=== PATIENT | male | born 1955 | race Caucasian/White ===

== ENCOUNTER 2016-09-21 21:04 | Emergency (ER) | payer OTHER ==
[~2016-09-21] VITALS: Ht 182.9 cm; Wt 118.0 kg
[~2016-09-21 21:04] MED LIST: REVIEWED
[2016-09-21 21:29] VITALS: TEMP 36.8; Ht 182.9 cm; Wt 118.0 kg
[2016-09-21] MEDS ORDERED: ACET-1256 PO (22:23)
--- NOTE | 2016-09-21 22:54 | DIAGNOSTIC IMAGING REPORT ---
LEFT RIBS UNILATERAL WITH PA CHEST CLINICAL HISTORY: Left rib pain status post trauma COMPARISON STUDY: No previous studies for comparison. FINDINGS: The erect chest reveals no pneumothorax. There is no focal pulmonary consolidation. No left-sided rib fractures are visualized. IMPRESSION: No evidence of pneumothorax. No left-sided rib fractures are visualized. Electronically signed by: Mich Montiel M.D. 09/21/2016 10:52 PM Dictated Date/Time: 09/21/2016 10:51 PM
--- NOTE | 2016-09-21 23:07 | EMERGENCY ROOM VISIT NOTE ---
History First contact with patient: 21:52 Chief Complaint: RIB PAIN Stated Complaint: POSSIBLE BROKEN RIBS ON LEFT SIDE History of Present Illness The patient is a 60 year old male who presents to the Emergency Room via private vehicle with complaints of "possible broken ribs on left side". The patient states that during his occupation, earlier today around 6:30 PM he was attempting to unload a car, when he slipped and struck his left arm and left anterior rib cage off of the back of the truck. He states that when he coughs he experiences pain over the left anterior ribs. He states that at rest she experiences a 0/10 pain, and when he coughs the pain increases to a 2-3/10. He at this time denies any chest pain, or loss of consciousness. Review of Systems A complete 6-point Review of Systems was discussed with the patient, with pertinent positives and negatives listed in the History of Present Illness. All remaining Review of Systems questions can be considered negative unless otherwise specified. Past Medical/Surgical History No pertinent past medical history at this time. Family History No pertinent family history at this time. Social History Smoking Status: Never Smoker Alcohol Use: none Drug Use: none Marital Status: single Occupation Status: employed Current/Historical Medications Scheduled PRN Acetaminophen (Tylenol), 1,000 MG PO Q6 PRN for Pain Allergies Coded Allergies: No Known Allergies (Verified , 09/21/16) Physical Exam Vital Signs Date Time Temp Pulse Resp B/P Pulse Ox O2 Delivery O2 Flow Rate FiO2 09/21/16 23:14 97 16 161/102 99 09/21/16 21:29 36.8 118 18 186/115 95 Room Air Physical Exam VITAL SIGNS - Vital signs and nursing notes were reviewed. Patient is afebrile , he is hypertensive at 186/1:15, he is tachycardic at a rate of 118 bpm, he is saturating well on room air 95%. GENERAL -60-year-old male appearing his stated age who is in no acute distress. Communicates well with provider and answers questions appropriately. SKIN - Without rashes. No petechial rashes. The skin overlying the anterior chest is unremarkable. HEAD - NC/AT. LUNGS - Chest wall symmetric without accessory muscle use, intercostals retractions, or central cyanosis. Normal vesicular breath sounds CTA B/L. No wheezes, rales, or rhonchi appreciated. CARDIAC - RRR with S1/S2. No murmur, rubs, or gallops appreciated. MUSCULOSKELETAL: There is no tenderness to palpation overlying the anterior chest or ribs. EXTREMITIES - No clubbing or peripheral cyanosis. No tenderness to palpation overlying the left arm. +5/5 strength noted in UE/LE bilaterally. Medical Decision & Procedures ER Provider Diagnostic Interpretation: LEFT RIBS UNILATERAL WITH PA CHEST CLINICAL HISTORY: Left rib pain status post trauma COMPARISON STUDY: No previous studies for comparison. FINDINGS: The erect chest reveals no pneumothorax. There is no focal pulmonary consolidation. No left-sided rib fractures are visualized. IMPRESSION: No evidence of pneumothorax. No left-sided rib fractures are visualized. Electronically signed by: Mich Montiel M.D. 09/21/2016 10:52 PM Dictated Date/Time: 09/21/2016 10:51 PM Medical Decision Patient was seen and evaluated as above. After obtaining a thorough history and physical examination ED protocol had already ordered PA chest with unilateral ribs. This was read by myself and the radiologist and revealed no pneumothorax or acute fracture. The patient declined any pain medication. The patient declined any workup for his heart or blood work. I informed him that he was hypertensive, however he notes that he will follow-up. He presents with what appears to be a rib contusion, and does not have any signs suggestive of an MN however he was offered workup for this but declined. The rib pain was not reproducible, however it was worsening with a cough. The patient states that throughout his stay he began to feel better, and when his blood pressure was reevaluated and it was lower but still hypertensive. The patient states that he is only not this high, but he will follow-up. He notes that he is only concerned that he may have had a punctured lung or broken rib of which have been ruled out by x-ray. He does appear stable for discharge, and was instructed to follow-up. I informed him that persistent elevated blood pressure is a risk factor for heart attack and stroke of which she seemed already to be aware of. He was educated upon management today's findings, declined an incentive spirometer, was educated upon worrisome symptoms which to return, and was discharged home in good condition. In the evaluation and treatment of this patient following differential diagnoses were entertained: Rib fracture, rib contusion, pneumothorax, hemothorax, MN, PE, among others. Impression Primary Impression: Contusion of rib on left side Departure Information Dispostion Home / Self-Care Condition GOOD Referrals No Doctor, Assigned (PCP) Patient Instructions [facility] Additional Instructions You have been treated in the Emergency Department for Rib pain on the left side. For pain control, you can use the following [id number] medicines (if >12 yo): - Regular strength (325mg/tab) Tylenol (acetaminophen) 2 tabs every 4-6 hours as needed. Do not exceed 12 tablets in a 24 hour period. Avoid taking more than 4 grams (4000 mg) of Tylenol per day. This includes any other sources of acetaminophen you may take on a regular basis. - Regular strength (200 mg/tab) Advil (ibuprofen) 1-2 tabs every 4-6 hours as needed. Do not exceed a dose of 3200 mg per day. If this is an acute injury, ice can be applied to the area of pain for the first 3 days to help decrease pain and inflammation. After the first 3 days, a heating pad can be used over the area for continued soothing relief. To minimize your discomfort, you can hug a pillow while coughing or sneezing. Additionally, you should continue to force yourself to take nice, deep breaths. Full expansion of the lungs is necessary to prevent the accumulation of fluid in the lung tissue and development of pneumonia. You should schedule a follow-up appointment in 2-3 days with your Primary Care Provider for further evaluation and treatment of your rib pain. Your blood pressure was found to be elevated today. Please follow-up with your family doctor regarding this. Return to the Emergency Department if your current symptoms worsen despite treatment course outlined above, or if you develop any of the following symptoms : intractable pain despite aforementioned treatment course, development of a wet cough, bloody cough, fever, chills, or increased shortness of breath. Please return to the emergency department with any new/concerning symptoms.
[2016-09-21 23:14] VITALS: BP 161/102; PULSE 97; O2SAT 99
== END 2016-09-21 23:14 | disposition home or self-care (01) ==
LOC: C.EDB 21:05 → C.EDD 23:14
DX: S20.212A Contusion of left front wall of thorax, initial encounter (principal); W01.0XXA Fall on same level from slipping, tripping and stumbling without subsequent striking against object, initial encounter; Y99.0 Civilian activity done for income or pay

== ENCOUNTER 2021-02-24 11:29 | Inpatient (IN) ==
[2021-02-24] MEDS ORDERED: VANCOMYCIN HCL 2,250 MG in SODIUM CHLORIDE 0.9% 500 ML IV ONE (12:36)
[2021-02-24] MEDS ORDERED: VANCOMYCIN CONSULT ACTIVE PRN ×2 (12:36→17:14)
[2021-02-24] MEDS ORDERED: cefTRIAXone SODIUM 2,000 MG/70 ML BAG IV STA (12:36)
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
[2021-02-24] MEDS ORDERED: SODIUM CHLORIDE 0.9% 1000ML 1,000 ML IV SCH (12:45)
[2021-02-24 13:23] LABS: Basophils # (auto) 0.02 K/uL (0-0.2); Basophils % (auto) 0.2 %; Eosinophils # (auto) 0.16 K/uL (0-0.5); Eosinophils % (auto) 1.9 %; Hematocrit (blood only) 35.4 % (42-52); Hemoglobin 12.1 g/dL (14.0-18.0); Immature Granulocytes # (auto) 0.02 K/uL (0.00-0.02); Immature Granulocytes % (auto) 0.2 %; Lymphocytes # (auto) 0.67 K/uL (1.2-3.4); Mean Corpuscular Hgb Conc 34.2 g/dL (32-36); Mean Corpuscular Volume 87.6 fL (80-100); Mean Platelet Volume 11.2 fL (7.4-10.4); Monocytes # (auto) 0.54 K/uL (0.11-0.59); Monocytes % (auto) 6.5 %; Neutrophils # (auto) 6.96 K/uL (1.4-6.5); Neutrophils % (auto) 83.2 %; Platelet Count 201 K/uL (130-400); RDW Coefficient of Variation 14.7 % (11.5-14.5); RDW Standard Deviation 47.7 fL (36.4-46.3); Red Blood Count 4.04 M/uL (4.7-6.1); White Blood Count 8.37 K/uL (4.8-10.8)
[2021-02-24 13:34] LABS: Partial Thromboplastin Time 25.6 Seconds (21.0-31.0); Prothrombin Time 9.8 Seconds (9.0-12.0)
[2021-02-24 13:42] LABS: Alanine Aminotransferase 29 U/L (12-78); Albumin Level 2.8 gm/dl (3.4-5.0); Aspartate Aminotransferase 18 U/L (15-37); BUN Creatinine Ratio 18.1 (10-20); Blood Urea Nitrogen 13 mg/dl (7-18); Calcium 8.5 mg/dl (8.5-10.1); Carbon Dioxide 24 mmol/L (21-32); Chloride 105 mmol/L (98-107); Creatinine Clr Calc Pharmacy 112.3 ml/min; Est GFR (African American) 113.5 ml/min; Est GFR (Non-African American) 97.9 ml/min; Glucose 120 mg/dl (70-99); Magnesium 2.1 mg/dl (1.8-2.4); Sodium 138 mmol/L (136-145)
[2021-02-24 13:47] LABS: Albumin Globulin Ratio 0.7 (0.9-2); Alkaline Phosphatase 68 U/L (45-117); Bilirubin,Total 0.6 mg/dl (0.2-1); Globulin 3.8 gm/dl (2.5-4.0); Total Protein 6.6 gm/dl (6.4-8.2); Troponin I < 0.015 ng/ml (0-0.045)
--- NOTE | 2021-02-24 14:21 | Ultrasound Report ---
US soft tissue groin CLINICAL HISTORY: Left groin palpable abnormality. COMPARISON STUDY: None. FINDINGS: Real-time sonographic imaging of the left groin was performed with insurance sales representative images woods bmitted. There is a 12 x 6 x 3 cm complex subcutaneous fluid collection within the left groin demonst rating internal echoes and a few septations. There is mild edema within the surrounding subcutaneous fat. IMPRESSION: A 12 x 6 x 3 cm complex subcutaneous fluid collection within the left groin. This favors a subcutaneous hematoma. Of note, sterility cannot be assessed by imaging. Recommend follow-up to en sure resolution. ACT 112: Negative or not required by law. Electronically signed by: Maninder Gonzalez M.D. 02/24/2021 2:20 PM
[2021-02-24 14:59] LABS: Appearance Urine Clear (Clear); Bilirubin Urine Negative (Negative); Blood Urine Negative (Negative); Color Urine Yellow; Glucose Urine UA Negative (Negative); Ketones Urine Negative (Negative); Leukocyte Esterase Urine Negative (Negative); Nitrite Urine Negative (Negative); Protein Urine Negative (Negative); Specific Gravity Urine 1.005 (1.000-1.030); Urobilinogen Urine Negative (Negative)
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
[2021-02-24] MEDS ORDERED: POLYETHYLENE (MIRALAX) 17 GM PACK PO PRN (17:14)
[2021-02-24] MEDS ORDERED: CEFEPIME CONSULT ACTIVE ONE (17:14)
[2021-02-24] MEDS ORDERED: SODIUM CHLORIDE 0.9% 250 ML IV PRN (17:14)
[2021-02-24] MEDS ORDERED: MAGNESIUM HYDROXIDE SUSP 30 ML UDC PO PRN (17:14)
[2021-02-24] MEDS ORDERED: ALUMINUM/MAGNESIUM SUSP 30 ML UDC PO PRN (17:14)
[2021-02-24] MEDS ORDERED: ONDANSETRON INJ 2 MG/ML 2 ML VIAL IV PRN ×2 (17:14→17:52)
--- NOTE | 2021-02-24 17:36 | Anesthesiology Consultation ---
Date of Service February 24, 2021 Assessment & Plan (1) Encounter for pre-operative examination: Chart Review Chart Review: Acceptable Risk for Surgery History Surgery Operation Date: 02/24/21 18:00 Proposed Procedures p Incision and Drainage General(Left) - Radha Trevizo MD Height/Weight Height: 6 ft Weight: 86 kg Allergies Allergy/AdvReac Type Severity Reaction Status Date / Time pollen extracts Allergy Intermediate Sneezing Verified 02/24/21 13:22 tree and shrub pollen Allergy Intermediate Sneezing Verified 02/24/21 13:22 weed pollen Allergy Intermediate Sneezing Verified 02/24/21 13:22 Medications Home Medications Medication Instructions Recorded Confirmed Last Taken 20- Bamboo 1 packet PO QAM 02/24/21 02/24/21 02/24/21 ascorbic acid 125 mg-collagen, 1 cap PO QAM 02/24/21 02/24/21 02/24/21 hydrolyzed 740 mg capsule Powder in (Collagen Plus Vitamin C) packet ibuprofen 200 mg tablet 800 mg PO Q6H PRN 02/24/21 02/24/21 02/24/21 800 mg Past Medical History Medical History (Updated 02/24/21 @ 17:36 by Zack De Souza MD) Anemia Hx of appendicitis No pertinent past medical history Past Family History Family History Mother Sepsis Father Coronary heart disease Past Surgical History Surgical History History of appendectomy Social History Smoking Status: Never smoker Physical Exam Vital Signs Last Vital Signs Temp 36.7 C 02/24/21 11:35 Pulse 84 02/24/21 16:30 Resp 16 02/24/21 16:30 BP 131/75 02/24/21 16:30 Pulse Ox 99 02/24/21 16:30 Testing Laboratory Results 02/24/21 12:55 02/24/21 12:55 PT 9.8 Seconds (9.0-12.0) 02/24/21 12:55 INR 1.0 (0.9-1.1) 02/24/21 12:55 APTT 25.6 Seconds (21.0-31.0) 02/24/21 12:55 Urine Color Yellow 02/24/21 Unknown Urine Appearance Clear (Clear) 02/24/21 Unknown Urine pH 7.0 (4.5-7.5) 02/24/21 Unknown Ur Specific [place] 1.005 (1.000-1.030) 02/24/21 Unknown Urine Protein Negative (Negative) 02/24/21 Unknown Urine Glucose (UA) Negative (Negative) 02/24/21 Unknown Urine Ketones Negative (Negative) 02/24/21 Unknown Urine Nitrite Negative (Negative) 02/24/21 Unknown Ur Leukocyte Esterase Negative (Negative) 02/24/21 Unknown Electrocardiogram Date: 02/24/21 Findings: + NSR @ (29)
--- NOTE | 2021-02-24 17:38 | History & Physical Bridge Note ---
Date of Service February 24, 2021 History & Physical Bridge Note I have examined the patient, reviewed the History & Physical and in the interval since the performance of the History & Physical I have noted the following changes of clinical significance: no changes noted
[2021-02-24] MEDS ORDERED: MIDAZOLAM HCL 1 MG/ML 2ML VIAL ONE (17:46)
[2021-02-24] MEDS ORDERED: ONDANSETRON INJ 2 MG/ML 2 ML VIAL ONE (17:46)
[2021-02-24] MEDS ORDERED: PROPOFOL IV EMULSION 10 MG/ML 20 ML VIAL IV ONE (17:46)
[2021-02-24] MEDS ORDERED: LIDOCAINE 2% 2 ML VIAL/AMP(20MG/ML) INFIL ONE (17:46)
[2021-02-24] MEDS ORDERED: fentaNYL citrate 100 MCG/2 ML VIAL ONE ×2 (17:46)
[2021-02-24] MEDS ORDERED: ATROPINE SULFATE 0.1 MG/ML 10ML SYR IV PRN (17:52)
[2021-02-24] MEDS ORDERED: LABETALOL HCL IV 5 MG/ML 20ML IV PRN (17:52)
[2021-02-24] MEDS ORDERED: fentaNYL citrate 100 MCG/2 ML VIAL IV PRN (17:52)
[2021-02-24] MEDS ORDERED: KETOROLAC 30 MG/ML VIAL IV PRN (17:52)
[2021-02-24] MEDS ORDERED: LIDOCAINE 1% LOCAL 20 ML VIAL ONE (18:02)
[2021-02-24] MEDS ORDERED: BUPIVACAINE 0.5 % 5 MG/1 ML MPF 30ML VIAL ONE (18:02)
[2021-02-24] MEDS ORDERED: BACITRACIN OINT 15 GM TUBE ONE (18:02)
--- NOTE | 2021-02-24 18:35 | Post Operative Brief Note ---
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
--- NOTE | 2021-02-24 19:14 | Anesthesiology Progress Note ---
Date of Service February 24, 2021 Anesthesia Post Procedure Vital Signs Vital Signs: Temp Pulse Pulse Pulse Resp BP BP 02/24/21 19:10 65 13 126/64 02/24/21 19:00 70 17 124/73 02/24/21 18:50 79 23 142/87 H 02/24/21 18:41 36.7 C 77 13 136/78 02/24/21 17:38 37.2 C 87 18 152/110 H 02/24/21 17:36 36.5 C 69 16 137/72 02/24/21 17:10 36.5 C 69 16 137/72 02/24/21 16:30 84 16 131/75 02/24/21 16:00 89 21 146/80 H 02/24/21 15:32 82 23 147/74 H 02/24/21 15:00 95 H 17 185/105 H 02/24/21 14:30 81 17 134/76 02/24/21 11:35 36.7 C 85 18 112/66 Pulse Ox 02/24/21 19:10 100 02/24/21 19:00 100 02/24/21 18:50 99 02/24/21 18:41 100 02/24/21 17:38 97 02/24/21 17:36 95 02/24/21 17:10 95 02/24/21 16:30 99 02/24/21 16:00 98 02/24/21 15:32 99 02/24/21 15:00 100 02/24/21 14:30 99 02/24/21 11:35 98 Transfer of Care Handoff Completed per policy Notes Mental Status: alert / awake / arousable Patient Amnestic to Procedure: Yes Nausea / Vomiting: adequately controlled Pain: adequately controlled Airway Patency, RR, SpO2: stable & adequate BP & HR: stable & adequate Hydration State: stable & adequate Anesthetic Complications: no major complications apparent
[2021-02-24] MEDS ORDERED: HYDROmorphone INJ 1 MG/ML SYRINGE IV PRN (19:52)
[2021-02-24] MEDS ORDERED: oxyCODONE/ACETAMINOPHEN 5mg/325mg TAB PO PRN (19:52)
[2021-02-24] MEDS ORDERED: IBUPROFEN 800 MG TAB PO PRN (19:52)
[2021-02-24] MEDS: CEFEPIME 2,000 MG in SYRINGE 0 ML IV SCH (19:57)
[2021-02-24] MEDS: SODIUM CHLORIDE 0.9% 1000ML 1,000 ML IV SCH (19:57)
--- NOTE | 2021-02-24 20:02 | Pharmacy Report ---
Pharmacy Abx Initial Consult - Date of Service February 24, 2021 - Pharmacy Dosing Scope Date of Consult: 02/24/21 Consultation requested by: JULIOCESAR ROSENTHAL Pharmacy is consulted to initiate VANCOMYCIN/CEFEPIME IV dosing therapy, order appropriate labs and adjust drug dose/frequency. - Subjective The patient is a 65 year old M admitted on 02/24/21 14:59. - Objective Height: 6 ft Weight: 86 kg Vital Signs (Past 12hrs): Vital Signs Temp Pulse Pulse Pulse Resp BP BP 02/24/21 19:35 36.4 C L 78 16 133/68 02/24/21 19:30 79 20 136/74 02/24/21 19:20 37.1 C 73 12 122/68 02/24/21 19:10 65 13 126/64 02/24/21 19:00 70 17 124/73 02/24/21 18:50 79 23 142/87 H 02/24/21 18:41 36.7 C 77 13 136/78 02/24/21 17:38 37.2 C 87 18 152/110 H 02/24/21 17:36 36.5 C 69 16 137/72 02/24/21 17:10 36.5 C 69 16 137/72 02/24/21 16:30 84 16 131/75 02/24/21 16:00 89 21 146/80 H 02/24/21 15:32 82 23 147/74 H 02/24/21 15:00 95 H 17 185/105 H 02/24/21 14:30 81 17 134/76 02/24/21 11:35 36.7 C 85 18 112/66 Pulse Ox 02/24/21 19:35 97 02/24/21 19:30 97 02/24/21 19:20 95 02/24/21 19:10 100 02/24/21 19:00 100 02/24/21 18:50 99 02/24/21 18:41 100 02/24/21 17:38 97 02/24/21 17:36 95 02/24/21 17:10 95 02/24/21 16:30 99 02/24/21 16:00 98 02/24/21 15:32 99 02/24/21 15:00 100 02/24/21 14:30 99 02/24/21 11:35 98 Lab Results (24hrs): Laboratory Tests (24 Hours) 02/24/21 02/24/21 02/24/21 12:55 12:55 12:55 WBC 8.37 Neut # (Auto) 6.96 H Creatinine 0.72 Est Cr Clr Drug Dosing 112.3 Procalcitonin 0.07 Micro Results: 02/24/21 18:21 Gram Stain - Pending Abdomen, Left Lower Quadrant Aerobic and Anaerobic Culture - Pending 02/24/21 Unknown Gram Stain - Pending Leg,Left Wound Culture - Pending 02/24/21 13:00 Aerobic Blood Culture - Pending Blood Anaerobic Blood Culture - Pending 02/24/21 12:55 Aerobic Blood Culture - Pending Blood Anaerobic Blood Culture - Pending - Assessment & Plan Assessment 65 year old MALE, admitted following apparent infection in the groin associated with a traumatic hematoma Plan Cefepime/Vancomycin for treatment of groin infection of the skin and soft tissue Vancomycin IV * estimated per Vancomycin AUC Nomogram * Loading dose: 2250 mg (26 mg/kg) * Maintenance dose: 1000 mg IV (11.6 mg/kg) every 8 hours * Goal trough level for skin/soft tissue infection : 13 to 17 mcg/mL * Trough level ordered for Wednesday prior to the 8 AM IV Vancomycin dose Pharmacy will continue to follow and will adjust dose/frequency as necessary. Thank you.
[2021-02-24 20:36] LABS: Hematocrit (blood only) 34.3 % (42-52); Hemoglobin 11.7 g/dL (14.0-18.0)
[2021-02-24] MEDS: VANCOMYCIN HCL 1,000 MG in SODIUM CHLORIDE 0.9% 250 ML IV SCH (23:54)
[2021-02-25 00:34] LABS: Hematocrit (blood only) 32.1 % (42-52)
--- NOTE | 2021-02-25 03:20 | Operative Report (OR) ---
DATE OF PROCEDURE: 02/24/2021. PREOPERATIVE DIAGNOSIS: Left groin abscess. POSTOPERATIVE DIAGNOSIS: Left groin g abscess. OPERATION: Incision and drainage, left groin abscess. SURGEON: Radha Trevizo MD ANESTHESIA: General. ESTIMATED BLOOD LOSS: About 10 mL. FINDINGS: Left groin abscess with necrosis of soft tissue. Wound cultures sent and biopsies, necros is of soft tissue sent to pathology. COMPLICATIONS: None. INDICATIONS FOR THE PROCEDURE: This is a 65-year-old gentleman who was admitted to the hospital for left groin infection and diagnosis of left groin abscess. I recommended to do the incision and drain age, left groin abscess. I did talk to the patient about the benefit, risk, alternate procedure. I indicated the risks may include, but not limited to, such as bleeding, infection and healing the woun d scar, recurrence, abscess, sepsis. The patient understands. He signed informed consent and I answ ered all questions. DETAILS OF PROCEDURE: We brought the patient to the OR, put the patient in the supine position on th e OR table. The patient received SCD on bilateral legs to prevent DVT. Also, patient received IV va ncomycin and cefoxitin for prophylactic antibiotic. The patient received general anesthesia without difficulty. The left groin was prepped and draped in routine sterile fashion after timeout. Then I m meghan about a 3 cm incision on the left groin, immediately the pus came out. We suctioned all the pus and sent a wound culture also. Also, the patient had a chronic soft tissue. We removed some chronic soft tissue to send to pathology. Once we cleansed the wound and used the saline to flush the wound . Then, we packed with 1-inch Kerlix, packing the wound. Hemostasis obtained. Then, we put the renea ssing on and the patient tolerated the procedure well. All instrument, needle, sponge and account co rrect x2 at the end of the case. The patient was transferred to recovery room in stable condition. After the procedure, I did talk to the patient about the OR finding and the procedure we did, patient understands. Job ID: [id number]
[2021-02-25] MEDS: SODIUM CHLORIDE 0.9% 1000ML 1,000 ML IV SCH ×3 (03:36→21:20)
[2021-02-25 07:22] LABS: Basophils # (auto) 0.03 K/uL (0-0.2); Basophils % (auto) 0.5 %; Eosinophils # (auto) 0.24 K/uL (0-0.5); Eosinophils % (auto) 4.3 %; Hematocrit (blood only) 32.4 % (42-52); Immature Granulocytes # (auto) 0.01 K/uL (0.00-0.02); Immature Granulocytes % (auto) 0.2 %; Lymphocytes # (auto) 0.97 K/uL (1.2-3.4); Lymphocytes % (auto) 17.4 %; Mean Corpuscular Hemoglobin 29.7 pg (25-34); Mean Corpuscular Volume 87.6 fL (80-100); Mean Platelet Volume 10.3 fL (7.4-10.4); Monocytes # (auto) 0.46 K/uL (0.11-0.59); Monocytes % (auto) 8.3 %; Neutrophils # (auto) 3.85 K/uL (1.4-6.5); Neutrophils % (auto) 69.3 %; Platelet Count 168 K/uL (130-400); RDW Coefficient of Variation 14.8 % (11.5-14.5); RDW Standard Deviation 47.1 fL (36.4-46.3); White Blood Count 5.56 K/uL (4.8-10.8)
[2021-02-25] MEDS: CEFEPIME 2,000 MG in SYRINGE 0 ML IV SCH ×2 (07:32→19:40)
[2021-02-25 07:45] LABS: BUN Creatinine Ratio 14.5 (10-20); Calcium 8.2 mg/dl (8.5-10.1); Creatinine Clr Calc Pharmacy 141.8 ml/min; Est GFR (African American) 124.9 ml/min; Est GFR (Non-African American) 107.8 ml/min; Potassium 3.7 mmol/L (3.5-5.1)
[2021-02-25] MEDS: VANCOMYCIN HCL 1,000 MG in SODIUM CHLORIDE 0.9% 250 ML IV SCH ×2 (07:47→16:18)
[2021-02-25] MEDS ORDERED: [UNRECOGNIZED DRUG - OTHER] PO SCH (09:00)
[2021-02-25 09:05] LABS: Estimated Average Glucose 105 mg/dl; Hemoglobin A1C 5.3 % (4.5-5.6)
[2021-02-25] MEDS: ASCORBIC ACID 500 MG TAB PO SCH (09:55)
--- NOTE | 2021-02-25 10:38 | Surgery Progress Note ---
Date of Service February 25, 2021 Assessment & Plan (1) Traumatic hematoma of groin: Plan: POD # 1 s/p I&D of infected hematoms of left groin -avss - postop pain minimal - no leukocytosis - culture showing gram + cocci - blood cultures pending Plan: wound care nurse consult for possible wound vac given size of wound continue iv antibiotics for cellulitis continue pain management as needed heart healthy diet Admission and Anticipated Discharge Date Admission Date: February 24, 2021 Subjective feeling good no pain in left groin region tolerating diet Physical Exam Constitutional: WD/WN, vitals as above no acute distress and not ill appearing Skin: Left groin with large dressing present and serous drainage. Dressing removed. Large wound with packing present. There is erythema surrounding the left groin wound and some emaciated tissue but no necrosis. Induration still present. Markings of erythema of the left hip and extending to right groin have improved. Results & Data ([facility]) Vital Signs (Past 12 Hours) Vital Signs Temp Pulse Resp BP Pulse Ox 02/25/21 07:43 36.5 C 72 18 128/72 96 02/25/21 04:02 36.8 C 76 16 136/72 99 Laboratory Results 02/25/21 02/25/21 02/25/21 Range/Units 12:06 07:02 07:02 WBC (4.8-10.8) K/uL RBC (4.7-6.1) M/uL Hgb 11.2 L (14.0-18.0) g/dL Hct 33.3 L (42-52) % MCV (80-100) fL MCH (25-34) pg MCHC (32-36) g/dL RDW Std Deviation (36.4-46.3) fL RDW Coeff of Jaci (11.5-14.5) % Plt Count (130-400) K/uL MPV (7.4-10.4) fL Immature Gran % (Auto) % Neut % (Auto) % Lymph % (Auto) % Carroll % (Auto) % Eos % (Auto) % Baso % (Auto) % Neut # (Auto) (1.4-6.5) K/uL Lymph # (Auto) (1.2-3.4) K/uL Carroll # (Auto) (0.11-0.59) K/uL Eos # (Auto) (0-0.5) K/uL Baso # (Auto) (0-0.2) K/uL Immature Gran # (Auto) (0.00-0.02) K/uL Sodium 141 (136-145) mmol/L Potassium 3.7 (3.5-5.1) mmol/L Chloride 109 H (98-107) mmol/L Carbon Dioxide 24 (21-32) mmol/L Anion Gap 8.0 (3-11) BUN 8 D (7-18) mg/dl Creatinine 0.57 L (0.6-1.4) mg/dl Est Cr Clr Drug Dosing 141.8 ml/min Est GFR ( Amer) 124.9 ml/min Est GFR (Non-Af Amer) 107.8 ml/min BUN/Creatinine Ratio 14.5 (10-20) Glucose 79 (70-99) mg/dl Estimat Average Glucose 105 mg/dl Hemoglobin A1c 5.3 (4.5-5.6) % Calcium 8.2 L (8.5-10.1) mg/dl Blood Type Blood Type Recheck Antibody Screen Crossmatch 02/25/21 02/25/21 02/24/21 Range/Units 07:02 00:25 21:41 WBC 5.56 (4.8-10.8) K/uL RBC 3.70 L (4.7-6.1) M/uL Hgb 11.0 L 11.0 L (14.0-18.0) g/dL Hct 32.4 L 32.1 L (42-52) % MCV 87.6 (80-100) fL MCH 29.7 (25-34) pg MCHC 34.0 (32-36) g/dL RDW Std Deviation 47.1 H (36.4-46.3) fL RDW Coeff of Jaci 14.8 H (11.5-14.5) % Plt Count 168 (130-400) K/uL MPV 10.3 (7.4-10.4) fL Immature Gran % (Auto) 0.2 % Neut % (Auto) 69.3 % Lymph % (Auto) 17.4 % Carroll % (Auto) 8.3 % Eos % (Auto) 4.3 % Baso % (Auto) 0.5 % Neut # (Auto) 3.85 (1.4-6.5) K/uL Lymph # (Auto) 0.97 L (1.2-3.4) K/uL Carroll # (Auto) 0.46 (0.11-0.59) K/uL Eos # (Auto) 0.24 (0-0.5) K/uL Baso # (Auto) 0.03 (0-0.2) K/uL Immature Gran # (Auto) 0.01 (0.00-0.02) K/uL Sodium (136-145) mmol/L Potassium (3.5-5.1) mmol/L Chloride (98-107) mmol/L Carbon Dioxide (21-32) mmol/L Anion Gap (3-11) BUN (7-18) mg/dl Creatinine (0.6-1.4) mg/dl Est Cr Clr Drug Dosing ml/min Est GFR ( Amer) ml/min Est GFR (Non-Af Amer) ml/min BUN/Creatinine Ratio (10-20) Glucose (70-99) mg/dl Estimat Average Glucose mg/dl Hemoglobin A1c (4.5-5.6) % Calcium (8.5-10.1) mg/dl Blood Type Blood Type Recheck A Positive Antibody Screen Crossmatch 02/24/21 02/24/21 Range/Units 20:28 20:28 WBC (4.8-10.8) K/uL RBC (4.7-6.1) M/uL Hgb 11.7 L (14.0-18.0) g/dL Hct 34.3 L (42-52) % MCV (80-100) fL MCH (25-34) pg MCHC (32-36) g/dL RDW Std Deviation (36.4-46.3) fL RDW Coeff of Jaci (11.5-14.5) % Plt Count (130-400) K/uL MPV (7.4-10.4) fL Immature Gran % (Auto) % Neut % (Auto) % Lymph % (Auto) % Carroll % (Auto) % Eos % (Auto) % Baso % (Auto) % Neut # (Auto) (1.4-6.5) K/uL Lymph # (Auto) (1.2-3.4) K/uL Carroll # (Auto) (0.11-0.59) K/uL Eos # (Auto) (0-0.5) K/uL Baso # (Auto) (0-0.2) K/uL Immature Gran # (Auto) (0.00-0.02) K/uL Sodium (136-145) mmol/L Potassium (3.5-5.1) mmol/L Chloride (98-107) mmol/L Carbon Dioxide (21-32) mmol/L Anion Gap (3-11) BUN (7-18) mg/dl Creatinine (0.6-1.4) mg/dl Est Cr Clr Drug Dosing ml/min Est GFR ( Amer) ml/min Est GFR (Non-Af Amer) ml/min BUN/Creatinine Ratio (10-20) Glucose (70-99) mg/dl Estimat Average Glucose mg/dl Hemoglobin A1c (4.5-5.6) % Calcium (8.5-10.1) mg/dl Blood Type A Positive Blood Type Recheck Antibody Screen NEGATIVE Crossmatch See Detail Microbiology 02/24/21 18:21 Gram Stain - Final Abdomen, Left Lower Quadrant Aerobic and Anaerobic Culture - Preliminary Staphylococcus species 02/24/21 12:55 Aerobic Blood Culture - Preliminary Blood No growth in Aerobic bottle after 24 hours. Anaerobic Blood Culture - Preliminary No growth in Anaerobic bottle after 24 hours. 02/24/21 Unknown Gram Stain - Final Leg,Left Wound Culture - Preliminary Staphylococcus species 02/24/21 13:00 Aerobic Blood Culture - Preliminary Blood No growth in Aerobic bottle after 24 hours. Anaerobic Blood Culture - Preliminary No growth in Anaerobic bottle after 24 hours. (1) Traumatic hematoma of groin Encounter type: initial encounter Qualified Code(s): S30.1XXA - Contusion of abdominal wall, initial encounter
[2021-02-25 12:16] LABS: Hematocrit (blood only) 33.3 % (42-52); Hemoglobin 11.2 g/dL (14.0-18.0)
[2021-02-25 18:47] LABS: Hematocrit (blood only) 34.1 % (42-52); Hemoglobin 11.5 g/dL (14.0-18.0)
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
[2021-02-26] MEDS: VANCOMYCIN HCL 1,000 MG in SODIUM CHLORIDE 0.9% 250 ML IV SCH ×4 (00:27→23:22)
[2021-02-26 01:07] LABS: Hematocrit (blood only) 35.2 % (42-52); Hemoglobin 12.1 g/dL (14.0-18.0)
[2021-02-26] MEDS: SODIUM CHLORIDE 0.9% 1000ML 1,000 ML IV SCH ×3 (02:41→22:08)
[2021-02-26] MEDS ORDERED: VANCOMYCIN TROUGH ONE (07:30)
[2021-02-26 08:24] LABS: Creatinine Clr Calc Pharmacy 155.4 ml/min; Est GFR (African American) 129.7 ml/min; Est GFR (Non-African American) 111.9 ml/min
[2021-02-26] MEDS: CEFEPIME 2,000 MG in SYRINGE 0 ML IV SCH ×2 (08:36→19:34)
[2021-02-26] MEDS: ASCORBIC ACID 500 MG TAB PO SCH (08:41)
[2021-02-26] MEDS: ACETAMINOPHEN 325 MG TAB PO PRN (08:46)
--- NOTE | 2021-02-26 08:58 | Pharmacy Report ---
Pharmacy Abx Dose Short Note - Date of Service February 26, 2021 - Assessment & Plan Assessment 65 year old M receiving Vancomycin and Cefepime for treatment of left groin abscess * Day #3 of antimicrobial therapy. * Preliminary OR cultures are growing Staph species. * Awaiting ID input. Plan Vancomycin * Trough level of 12.6 mcg/mL is therapeutic * This indicates that steady state AUC/FABRICE is between the goal range of 400- 600 mg/L.hr * Continue dose of 1000 mg IV every 8 hours * Goal trough level: 10 to 15 mcg/mL * Trough level ordered for 02/28/21 prior to the 0800 dose Cefepime * Continue 2000 mg IV every 12 hours Pharmacy will continue to follow and will adjust dose/frequency as necessary. Thank you.
--- NOTE | 2021-02-26 12:41 | Surgery Progress Note ---
Date of Service February 26, 2021 Assessment & Plan (1) Traumatic hematoma of groin: Plan: POD # 2 s/p I&D of infected hematomas of left groin - avss - postop pain minimal - no leukocytosis - culture showing staph aureus - blood cultures negative to date Plan: wound vac therapy per wound nurse Continue IV abx, medicine consulted Wilberto ZULETA for further recommendations duration of treatment our services signing off, please call with questions or concerns Dr. Trevizo has seen patient on rounds and agrees with above. Admission and Anticipated Discharge Date Admission Date: February 25, 2021 Subjective feeling much better wound vac was placed and looks great minimal pain tolerating diet Physical Exam Constitutional: WD/WN, vitals as above no acute distress and not ill appearing Respiratory: normal respiratory effort; no respiratory distress, no labored breathing and no retractions Gastrointestinal (Abdomen): Left groin with wound vac in place and to suction surrounding erythema improving Skin: no rashes, warm and dry Psychiatric: A+Ox3, euthymic affect Results & Data ([facility]) Vital Signs (Past 12 Hours) Vital Signs Temp Pulse Resp BP Pulse Ox 02/26/21 08:00 36.4 C L 66 16 144/78 H 95 Laboratory Results 02/26/21 02/26/21 02/26/21 Range/Units 07:34 07:34 00:31 Hgb 12.1 L (14.0-18.0) g/dL Hct 35.2 L (42-52) % Creatinine 0.52 L (0.6-1.4) mg/dl Est Cr Clr Drug Dosing 155.4 ml/min Est GFR ( Amer) 129.7 ml/min Est GFR (Non-Af Amer) 111.9 ml/min Vancomycin Trough 12.6 (See Comment) mcg/ml 02/25/21 Range/Units 18:11 Hgb 11.5 L (14.0-18.0) g/dL Hct 34.1 L (42-52) % Creatinine (0.6-1.4) mg/dl Est Cr Clr Drug Dosing ml/min Est GFR ( Amer) ml/min Est GFR (Non-Af Amer) ml/min Vancomycin Trough (See Comment) mcg/ml Microbiology 02/24/21 Unknown Gram Stain - Final Leg,Left Wound Culture - Final Staphylococcus aureus 02/24/21 18:21 Gram Stain - Final Abdomen, Left Lower Quadrant Aerobic and Anaerobic Culture - Preliminary Staphylococcus aureus 02/24/21 12:55 Aerobic Blood Culture - Preliminary Blood No growth in Aerobic bottle after 24 hours. Anaerobic Blood Culture - Preliminary No growth in Anaerobic bottle after 24 hours. 02/24/21 13:00 Aerobic Blood Culture - Preliminary Blood No growth in Aerobic bottle after 24 hours. Anaerobic Blood Culture - Preliminary No growth in Anaerobic bottle after 24 hours. (1) Traumatic hematoma of groin Encounter type: initial encounter Qualified Code(s): S30.1XXA - Contusion of abdominal wall, initial encounter
--- NOTE | 2021-02-26 15:44 | Electrocardiogram Report ---
Test Reason : Blood Pressure : / mmHG Vent. Rate : 076 BPM Atrial Rate : 076 BPM P-R Int : 136 ms QRS Dur : 098 ms QT Int : 390 ms P-R-T Axes : 074 048 049 degrees QTc Int : 438 ms Normal sinus rhythm Normal ECG When compared with ECG of 12-SEP-2018 01:57, No significant change was found Confirmed by Charles Lazar ([id number]) on 02/26/2021 3:43:51 PM Referred By: REFERRED SELF Confirmed By:Charles Lazar
--- NOTE | 2021-02-26 19:07 | Hospitalist Progress Note ---
Date of Service February 26, 2021 Assessment & Plan (1) Traumatic hematoma of groin: (2) Elevated serum glucose: Plan: Patient is a 65 yr kole who is otherwise healthy who presents to ED secondary to infection of left groin x5 days. Traumatic infected hematoma of left groin S/P I&D of infected hematoma of left groin POD #2 by Wound Cx: Staph Blood culture negative Continue IV antibiotics for now Appreciate surgery input ID consulted--pending Continue wound VAC Needs follow-up with surgery/wound clinic upon discharge Anemia Hb stable unknown baseline likely secondary to hematoma Monitor DVT px: SCD/TEDS Re: hematoma Code Status Full Code Admission and Anticipated Discharge Date Admission Date: February 25, 2021 Subjective Patient is seen and examined at bedside Left groin wound pain is resolved Eager to get discharged Offers no complaints Denies chest pain, shortness of breath, dizziness, nausea, abdominal pain Review of Systems Review of Systems: All systems reviewed & are unremarkable except as noted in Subjective Physical Exam Physical Exam: Physical Exam: Vitals signs as noted above General Appearance:Moderately built and nourished, no apparent distress Head: normocephalic, Atraumatic Eyes: normal inspection, EOMI Neck: supple, Trachea midline Respiratory/Chest: Normal breath sounds, CTA Cardiovascular: S1, S2, No murmur Abdomen/GI:Soft, Non tender, Bowel sounds present Extremities/Musculoskeletal:normal inspection, no edema, Left groin wound, +Wound Vac Neurologic/Psych:AAOX3, grossly no focal neurological deficits Skin: normal color, warm Results & Data Results & Data ([facility]) Vital Signs (Past 12 Hours) Vital Signs Temp Pulse Pulse Resp BP Pulse Ox 02/26/21 16:08 36.5 C 59 L 18 137/56 L 98 02/26/21 13:29 36.4 C L 60 18 162/80 H 100 02/26/21 08:00 36.4 C L 66 16 144/78 H 95 Laboratory Results Short CBC 02/26/21 Range/Units 00:31 Hgb 12.1 L (14.0-18.0) g/dL Hct 35.2 L (42-52) % BMP 02/26/21 07:34 Creatinine 0.52 L (1) Traumatic hematoma of groin Encounter type: initial encounter Qualified Code(s): S30.1XXA - Contusion of abdominal wall, initial encounter
[2021-02-27 06:09] LABS: Hematocrit (blood only) 33.3 % (42-52); Hemoglobin 11.4 g/dL (14.0-18.0); Mean Corpuscular Hgb Conc 34.2 g/dL (32-36); Mean Corpuscular Volume 87.6 fL (80-100); Mean Platelet Volume 10.8 fL (7.4-10.4); Platelet Count 213 K/uL (130-400); RDW Coefficient of Variation 14.5 % (11.5-14.5); RDW Standard Deviation 46.5 fL (36.4-46.3); White Blood Count 4.74 K/uL (4.8-10.8)
[2021-02-27 06:43] LABS: BUN Creatinine Ratio 15.7 (10-20); Calcium 8.2 mg/dl (8.5-10.1); Creatinine Clr Calc Pharmacy 175.7 ml/min; Est GFR (African American) 136.4 ml/min; Est GFR (Non-African American) 117.7 ml/min; Potassium 3.5 mmol/L (3.5-5.1)
[2021-02-27] MEDS: CEFEPIME 2,000 MG in SYRINGE 0 ML IV SCH (08:51)
[2021-02-27] MEDS: ASCORBIC ACID 500 MG TAB PO SCH (08:51)
[2021-02-27] MEDS: ACETAMINOPHEN 325 MG TAB PO PRN (08:51)
[2021-02-27] MEDS: VANCOMYCIN HCL 1,000 MG in SODIUM CHLORIDE 0.9% 250 ML IV SCH (08:51)
--- NOTE | 2021-02-27 11:42 | Surgery Progress Note ---
Date of Service February 27, 2021 Assessment & Plan (1) Traumatic hematoma of groin: Plan: POD # 3 s/p I&D of infected hematoma of left groin - avss - postop pain minimal - no leukocytosis - culture showing staph aureus - blood cultures negative to date Plan: wound vac therapy per wound nurse, will need follow-up in wound clinic Antibiotic regimen at discharge per medicine and ID consult case management on board, home health and wound vac set up for patient our services signing off, please call with questions or concerns follow-up dr. wheeler prn Dr. Wheeler has seen patient on rounds and agrees with above. Admission and Anticipated Discharge Date Admission Date: February 25, 2021 Subjective feeling great wants to get out of here no n/v, tolerating diet said no one has told him about wound vac care and wound clinic follow-up Physical Exam Constitutional: WD/WN, vitals as above no acute distress and not ill appearing Respiratory: normal respiratory effort; no respiratory distress, no labored breathing and no retractions Gastrointestinal (Abdomen): Left groin with wound vac in place. Surrounding erythema has significantly improved. No longer extending to right groin or left medial thigh. Skin: no rashes, warm and dry Psychiatric: A+Ox3, euthymic affect Results & Data ([facility]) Vital Signs (Past 12 Hours) Vital Signs Temp Pulse Resp BP Pulse Ox 02/27/21 07:09 36.7 C 65 16 152/78 H 96 Laboratory Results 02/27/21 02/27/21 02/24/21 Range/Units 05:37 05:37 20:28 WBC 4.74 L (4.8-10.8) K/uL RBC 3.80 L (4.7-6.1) M/uL Hgb 11.4 L (14.0-18.0) g/dL Hct 33.3 L (42-52) % MCV 87.6 (80-100) fL MCH 30.0 (25-34) pg MCHC 34.2 (32-36) g/dL RDW Std Deviation 46.5 H (36.4-46.3) fL RDW Coeff of Jaci 14.5 (11.5-14.5) % Plt Count 213 (130-400) K/uL MPV 10.8 H (7.4-10.4) fL Sodium 141 (136-145) mmol/L Potassium 3.5 (3.5-5.1) mmol/L Chloride 109 H (98-107) mmol/L Carbon Dioxide 24 (21-32) mmol/L Anion Gap 8.0 (3-11) BUN 7 (7-18) mg/dl Creatinine 0.46 L (0.6-1.4) mg/dl Est Cr Clr Drug Dosing 175.7 ml/min Est GFR ( Amer) 136.4 ml/min Est GFR (Non-Af Amer) 117.7 ml/min BUN/Creatinine Ratio 15.7 (10-20) Glucose 82 (70-99) mg/dl Calcium 8.2 L (8.5-10.1) mg/dl Crossmatch See Detail Microbiology 02/24/21 12:55 Aerobic Blood Culture - Preliminary Blood No growth in Aerobic bottle after 48 hours. Anaerobic Blood Culture - Preliminary No growth in Anaerobic bottle after 48 hours. 02/24/21 13:00 Aerobic Blood Culture - Preliminary Blood No growth in Aerobic bottle after 48 hours. Anaerobic Blood Culture - Preliminary No growth in Anaerobic bottle after 48 hours. 02/24/21 Unknown Gram Stain - Final Leg,Left Wound Culture - Final Staphylococcus aureus 02/24/21 18:21 Gram Stain - Final Abdomen, Left Lower Quadrant Aerobic and Anaerobic Culture - Preliminary Staphylococcus aureus (1) Traumatic hematoma of groin Encounter type: initial encounter Qualified Code(s): S30.1XXA - Contusion of abdominal wall, initial encounter
--- NOTE | 2021-02-27 13:19 | Hospitalist Progress Note ---
Date of Service February 27, 2021 Assessment & Plan (1) Traumatic hematoma of groin: (2) Elevated serum glucose: Plan: Patient is a 65 yr kole who is otherwise healthy who presents to ED secondary to infection of left groin x5 days. Traumatic infected hematoma of left groin S/P I&D of infected hematoma of left groin POD #3 by Wound Cx: Staph Blood culture negative Continue IV antibiotics (Vanco, Cefepime) transitioned to Keflex Appreciate surgery input Discussed with ID over the phone. Continue wound VAC Needs follow-up with surgery/wound clinic upon discharge Anemia Hb stable unknown baseline likely secondary to hematoma Monitor DVT px: SCD/TEDS Re: hematoma Code Status Full Code Admission and Anticipated Discharge Date Admission Date: February 25, 2021 Subjective Patient is seen and examined at bedside No new complaints Denies any wound pain Discussed with ID today Denies chest pain, shortness of breath, dizziness, nausea, abdominal pain Also discussed with surgery Review of Systems Review of Systems: All systems reviewed & are unremarkable except as noted in Subjective Physical Exam Physical Exam: Physical Exam: Vitals signs as noted above General Appearance:Moderately built and nourished, no apparent distress Head: normocephalic, Atraumatic Eyes: normal inspection, EOMI Neck: supple, Trachea midline Respiratory/Chest: Normal breath sounds, CTA Cardiovascular: S1, S2, No murmur Abdomen/GI:Soft, Non tender, Bowel sounds present Extremities/Musculoskeletal:normal inspection, no edema, Left groin wound, +W ound Vac Neurologic/Psych:AAOX3, grossly no focal neurological deficits Skin: normal color, warm Results & Data Results & Data ([facility]) Vital Signs (Past 12 Hours) Vital Signs Temp Pulse Resp BP Pulse Ox 02/27/21 07:09 36.7 C 65 16 152/78 H 96 Laboratory Results Short CBC 02/27/21 Range/Units 05:37 WBC 4.74 L (4.8-10.8) K/uL Hgb 11.4 L (14.0-18.0) g/dL Hct 33.3 L (42-52) % Plt Count 213 (130-400) K/uL BMP 02/27/21 05:37 Sodium 141 Potassium 3.5 Chloride 109 H Carbon Dioxide 24 BUN 7 Creatinine 0.46 L Glucose 82 Calcium 8.2 L (1) Traumatic hematoma of groin Encounter type: initial encounter Qualified Code(s): S30.1XXA - Contusion of abdominal wall, initial encounter
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
[2021-02-27] MEDS ORDERED: cephALEXin 500 MG CAP PO SCH (17:00)
[2021-02-28] MEDS ORDERED: VANCOMYCIN TROUGH ONE (07:30)
== END 2021-02-27 13:35 | disposition home health service (06) | DRG 571 ==
LOC: ED 11:29 → 3N 11:29 → SUATTDRO 02-25 08:12

== ENCOUNTER 2023-03-06 18:43 | Inpatient (IN) ==
[2023-03-06] MEDS ORDERED: ONDANSETRON INJ 2 MG/ML 2 ML VIAL IV STA (18:56)
[2023-03-06 20:14] LABS: Basophils # (auto) 0.07 K/uL (0.00-0.20); Basophils % (auto) 1.2 %; Eosinophils # (auto) 0.17 K/uL (0.00-0.50); Eosinophils % (auto) 2.9 %; Hematocrit (blood only) 35.4 % (42.0-52.0); Hemoglobin 12.7 g/dl (14.0-18.0); Immature Granulocytes # (auto) 0.01 K/uL (0.01-0.20); Immature Granulocytes % (auto) 0.2 %; Lymphocytes # (auto) 0.86 K/uL (1.20-3.40); Lymphocytes % (auto) 14.5 %; Mean Corpuscular Hemoglobin 30.7 pg (25.0-34.0); Mean Corpuscular Hgb Conc 35.9 g/dL (32.0-36.0); Mean Corpuscular Volume 85.5 fL (80.0-100.0); Monocytes # (auto) 0.63 K/uL (0.11-0.59); Monocytes % (auto) 10.6 %; Neutrophils # (auto) 4.19 K/uL (1.40-6.50); Neutrophils % (auto) 70.6 %; Platelet Count 199 K/uL (130-400); RDW Coefficient of Variation 13.8 % (11.5-14.5); Red Blood Count 4.14 M/uL (4.70-6.10); White Blood Count 5.93 K/ul (4.8-10.8)
[2023-03-06 20:16] LABS: Appearance Urine Clear (Clear); Bilirubin Urine Negative (Negative); Blood Urine Negative (Negative); Color Urine Yellow; Glucose Urine UA Negative (Negative); Ketones Urine Negative (Negative); Leukocyte Esterase Urine Negative (Negative); Nitrite Urine Negative (Negative); Protein Urine Negative (Negative); Specific Gravity Urine 1.006 (1.000-1.030); Urobilinogen Urine Negative (Negative); pH Urine >= 9.0 (4.5-7.5)
[2023-03-06 20:32] LABS: Albumin Level 4.4 gm/dl (3.4-5.0); BUN Creatinine Ratio 7.3 (10-20); Bilirubin,Total 0.9 mg/dl (0.2-1.0); Calcium 9.8 mg/dl (8.6-10.3); Creatinine Clr Calc Pharmacy 33.6 ml/min; Est GFR (African American) 32.2 ml/min; Est GFR (Non-African American) 27.7 ml/min; Globulin 2.2 gm/dl (2.5-4.0); Potassium 4.2 mmol/L (3.5-5.1); Total Protein 6.6 gm/dl (6.0-8.3)
[2023-03-06] MEDS ORDERED: SODIUM CHLORIDE 0.9% 1,000 ML IV ONE (21:19)
--- NOTE | 2023-03-06 22:11 | Emergency Department Note ---
History of Present Illness General Chief complaint: Weakness Stated complaint: DEHYDRATION, LIGHT HEADED Time Seen by Provider: 03/06/23 21:14 History of Present Illness Provider Complaint: + nausea and + vomiting Onset (ago): day(s) 5 Description of Vomiting: no bilious, no blood-streaked, no bloody or no coffee grounds Description of Diarrhea: no mucousy, no tarry, no blood-streaked or no bloody (bright red) Associated Abdominal Pain: No Relieved By: + none Exacerbated By: + none Context: no sick contacts, no recent antibiotic use, no recent surgery/procedure, no alcohol abuse, no NSAID use, no smoking or no marijuana use Associated symptoms: + myalgias, + cough, + malaise and + weakness; no chest pain, no fever/chills, no dysuria or no shortness of breath HPI Narrative: Patient reports she has been sick for the last 4 days having nasal congestion, sinus pressure, cough. Home Medications Medication Instructions Recorded Confirmed Type acetaminophen 325 mg tablet 650 mg PO Q4H PRN Pain 03/06/23 03/06/23 History cholecalciferol (vitamin D3) 25 0 mcg PO DAILY 03/06/23 03/06/23 History mcg (1,000 unit) chewable tablet (Vitamin D3) loratadine 10 mg tablet (Claritin) 10 mg PO DAILY 03/06/23 03/06/23 History Allergies Allergy/AdvReac Type Severity Reaction Status Date / Time pollen extracts Allergy Intermediate Sneezing Verified 03/06/23 21:36 tree and shrub pollen Allergy Intermediate Sneezing Verified 03/06/23 21:36 weed pollen Allergy Intermediate Sneezing Verified 03/06/23 21:36 Past Med/Surg History Medical History Anemia Hx of appendicitis No pertinent past medical history Surgical History History of appendectomy Family History Mother Sepsis Father Coronary heart disease Social History Smoking Status: Never smoker Second Hand Exposure: Yes (father); Do You Dip or Chew Tobacco: No; Hx Alcohol Use: No Hx Substance Use: No Preferred Language: Faroese Communication Ability: Effective Skiing Teacher Required: No Beliefs That Will Affect Care: None Current Living Situation: Family Current Living Situation Comment: 2 sons Feels Safe at Home: Yes Assistive Devices: None Physical Exam Vital Signs: Vital Signs - 24 hr 03/06/23 18:53 03/06/23 21:07 03/06/23 22:22 Temperature 36.7 C Temperature Source Temporal Artery Sc an Pulse Rate 92 H 97 H Pulse Rate [Left F victor hugo] 103 H Pulse Rhythm [Left Finger] Regular Pulse Strength [Le ft Finger] Normal Respiratory Rate 18 18 Respiratory Effort / Characteristics Non-Labored Sponta neous Non-Labored Sponta neous Respiratory Depth Normal Normal Respiratory Patter n Regular Blood Pressure 156/101 H Blood Pressure [Le ft Arm] 188/105 H Blood Pressure Katie n 119 Blood Pressure Katie n [Left Arm] 132 Pulse Oximetry 100 100 Oxygen Delivery Me thod Room Air Room Air Sepsis Recent Feve r Within 48 Hours No Sepsis New/Unexpla ined Change in Men paulo Status No Sepsis Action Take n by Nursing No Action Required Physical Exam: Physical Exam GENERAL: He is oriented to person, place, and time. He appears well-developed and well-nourished. He does not appear distressed. HENT: Exam performed. - Head: Normocephalic and atraumatic. - Right Ear: External ear normal. No mastoid erythema - Left Ear: External ear normal. No mastoid erythema - Mouth/Throat: The oropharynx is clear and moist. No trismus in the jaw. No dental abscesses or uvula swelling. No oropharyngeal exudate or tonsillar abscesses. EYES: Conjunctivae and EOM are normal. Pupils are equal, round, and reactive to light. Right eye exhibits no discharge. Left eye exhibits no discharge. No scleral icterus. NECK: Normal range of motion. Neck supple. No JVD present. No rigidity. No tra cheal deviation and normal range of motion present. CV: Normal rate, regular rhythm, normal heart sounds and intact distal pulses. There is no peripheral edema. Palpable radial pulses bue. PULM/CHEST: Effort normal and breath sounds normal. No respiratory distress. No stridor. He has no wheezes. He has no rales. ABD: The abdomen is soft. Bowel sounds are normal. He has no distension. No mass is present. There is no tenderness. There is no rebound, no guarding, no Davis's sign and no tenderness at McBurney's point. Rovsig negative. No CVA tenderness bilaterally. MUSC/SKEL: Normal range of motion. There is no peripheral edema, tenderness or deformity. LYMPH: No cervical adenopathy. NEURO: He is alert and oriented to person, place, and time. He has normal strength. No cranial nerve deficit or sensory deficit. Coordination and gait normal. GCS eye subscore is 4. GCS verbal subscore is 5. GCS motor subscore is 6. Cerebellar tests wnl. SKIN: Skin is warm and dry. He is not diaphoretic. PSYCH: He has a normal mood and affect. Behavior is normal. Judgment and thought content normal. Course Course 2113: The patient was evaluated in room A10. A complete history and physical exam was performed Administered Medications Discontinued Medications Sodium Chloride (Nss 1000ml) 1,000 mls @ 999 mls/hr IV .Q1H1M ONE Stop: 03/06/23 22:19 Last Admin: 03/06/23 21:27 Dose: 999 mls/hr Documented By: ЕКАТЕРИНА Ondansetron HCl (Ondansetron Inj 2 Mg/Ml 2 Ml Vial) 4 mg IV NOW STA Stop: 03/06/23 18:57 Last Admin: 03/06/23 19:28 Dose: 4 mg Documented By: YOKO Medical Decision Making Laboratory Data Attestation: I reviewed the patient's lab results. 03/06/23 19:20 03/06/23 19:20 Lab Results 03/06/23 03/06/23 03/06/23 Range/Units 19:20 19:20 19:45 WBC 5.93 (4.8-10.8) K/ul RBC 4.14 L (4.70-6.10) M/uL Hgb 12.7 L (14.0-18.0) g/dl Hct 35.4 L (42.0-52.0) % MCV 85.5 (80.0-100.0) fL MCH 30.7 (25.0-34.0) pg MCHC 35.9 (32.0-36.0) g/dL RDW Std Deviation 43.0 (36.4-46.3) fL RDW Coeff of Jaci 13.8 (11.5-14.5) % Plt Count 199 (130-400) K/uL MPV 12.0 (9.4-12.4) fL Immature Gran % (Auto) 0.2 % Neut % (Auto) 70.6 % Lymph % (Auto) 14.5 % [place] % (Auto) 10.6 % Eos % (Auto) 2.9 % Baso % (Auto) 1.2 % Neut # (Auto) 4.19 (1.40-6.50) K/uL Lymph # (Auto) 0.86 L (1.20-3.40) K/uL [place] # (Auto) 0.63 H (0.11-0.59) K/uL Eos # (Auto) 0.17 (0.00-0.50) K/uL Baso # (Auto) 0.07 (0.00-0.20) K/uL Immature Gran # (Auto) 0.01 (0.01-0.20) K/uL Sodium 137 (136-145) mmol/L Potassium 4.2 (3.5-5.1) mmol/L Chloride 100 (98-107) mmol/L Carbon Dioxide 27 (21-32) mmol/L Anion Gap 10 (3-11) BUN 17 (6-23) mg/dl Creatinine 2.34 H (0.6-1.4) mg/dl Est Cr Clr Drug Dosing 33.6 ml/min Est GFR ( Amer) 32.2 ml/min Est GFR (Non-Af Amer) 27.7 ml/min BUN/Creatinine Ratio 7.3 L (10-20) Glucose 92 (70-99(Fasting)) mg/dl Calcium 9.8 (8.6-10.3) mg/dl Total Bilirubin 0.9 (0.2-1.0) mg/dl AST 19 (13-39) U/L ALT 14 (7-52) U/L Alkaline Phosphatase 56 (34-104) U/L Total Protein 6.6 (6.0-8.3) gm/dl Albumin 4.4 (3.4-5.0) gm/dl Globulin 2.2 L (2.5-4.0) gm/dl Albumin/Globulin Ratio 2.0 (0.9-2) Lipase 7 L (11-82) U/L Urine Color Yellow Urine Appearance Clear (Clear) Urine pH >= 9.0 H (4.5-7.5) Ur Specific [place] 1.006 (1.000-1.030) Urine Protein Negative (Negative) Urine Glucose (UA) Negative (Negative) Urine Ketones Negative (Negative) Urine Blood Negative (Negative) Urine Nitrite Negative (Negative) Urine Bilirubin Negative (Negative) Urine Urobilinogen Negative (Negative) Ur Leukocyte Esterase Negative (Negative) SARS-CoV-2, RNA, NAAT (NEGATIVE) 03/06/23 Range/Units 21:28 WBC (4.8-10.8) K/ul RBC (4.70-6.10) M/uL Hgb (14.0-18.0) g/dl Hct (42.0-52.0) % MCV (80.0-100.0) fL MCH (25.0-34.0) pg MCHC (32.0-36.0) g/dL RDW Std Deviation (36.4-46.3) fL RDW Coeff of Jaci (11.5-14.5) % Plt Count (130-400) K/uL MPV (9.4-12.4) fL Immature Gran % (Auto) % Neut % (Auto) % Lymph % (Auto) % [place] % (Auto) % Eos % (Auto) % Baso % (Auto) % Neut # (Auto) (1.40-6.50) K/uL Lymph # (Auto) (1.20-3.40) K/uL [place] # (Auto) (0.11-0.59) K/uL Eos # (Auto) (0.00-0.50) K/uL Baso # (Auto) (0.00-0.20) K/uL Immature Gran # (Auto) (0.01-0.20) K/uL Sodium (136-145) mmol/L Potassium (3.5-5.1) mmol/L Chloride (98-107) mmol/L Carbon Dioxide (21-32) mmol/L Anion Gap (3-11) BUN (6-23) mg/dl Creatinine (0.6-1.4) mg/dl Est Cr Clr Drug Dosing ml/min Est GFR ( Amer) ml/min Est GFR (Non-Af Amer) ml/min BUN/Creatinine Ratio (10-20) Glucose (70-99(Fasting)) mg/dl Calcium (8.6-10.3) mg/dl Total Bilirubin (0.2-1.0) mg/dl AST (13-39) U/L ALT (7-52) U/L Alkaline Phosphatase (34-104) U/L Total Protein (6.0-8.3) gm/dl Albumin (3.4-5.0) gm/dl Globulin (2.5-4.0) gm/dl Albumin/Globulin Ratio (0.9-2) Lipase (11-82) U/L Urine Color Urine Appearance (Clear) Urine pH (4.5-7.5) Ur Specific [place] (1.000-1.030) Urine Protein (Negative) Urine Glucose (UA) (Negative) Urine Ketones (Negative) Urine Blood (Negative) Urine Nitrite (Negative) Urine Bilirubin (Negative) Urine Urobilinogen (Negative) Ur Leukocyte Esterase (Negative) SARS-CoV-2, RNA, NAAT NEGATIVE (NEGATIVE) MDM Narrative Cardiac monitoring: An order was placed for continuous cardiac monitoring. The monitor shows a rate of 90 with sinus rhythm interpreted by me Patient was seen during a time of extreme volume and extreme acuity in the emergency department. Nursing triage protocols were initiated and labs were drawn by protocol in the triage area. Labs show MARY. Patient is COVID-negative. Patient be admitted to the [facility] Hospitalist team. Dr. Vernon notified. Impression & Plan MARY (acute kidney injury) Discharge Plan Visit Data Chief Complaint: Weakness Stated Complaint: DEHYDRATION, LIGHT HEADED ED Provider: Phillip Ayala Discharge Problem: MARY (acute kidney injury) Patient Disposition: Admitted As Inpatient Forms Stand Alone Forms: [facility] Prescriptions Prescriptions: No Action loratadine [Claritin] 10 mg Tablet 10 mg PO DAILY cholecalciferol (vitamin D3) [Vitamin D3] 25 mcg (1,000 unit) Tablet,Chewable 0 mcg PO DAILY Rx Instructions: 2 tabs daily acetaminophen 325 mg tablet 650 mg PO Q4H PRN (Reason: Pain) Referrals Referrals: PCP,NO [Primary Care Provider] -
--- NOTE | 2023-03-06 22:17 | Ultrasound Report ---
ULTRASOUND KIDNEYS AND BLADDER CLINICAL HISTORY: Acute renal insufficiency. COMPARISON STUDY: Abdominal CT dated 09/24/2009 TECHNIQUE: Real-time, grayscale, and color flow sonography of the kidneys and bladder is performed. I mages are reviewed in the transverse and longitudinal planes. FINDINGS: Kidneys: The kidneys are normal in size and echotexture. The right kidney measures 12.7 cm in length and the left kidney measures 13.7 cm in length. There is moderate bilateral hydroureteronephrosis. No shadowing renal calculi are identified. There is no sonographic evidence of contour deforming renal mass lesion. A 2.5 cm cyst is seen in the right lower pole. No perinephric fluid is identified. Bladder: The bladder is markedly distended. The wall appears thickened/trabeculated. Ureteral jets we re not seen. A bladder diverticulum is noted. The postvoid residual measures 966 cc. IMPRESSION: 1. Marked bladder distention. A bladder diverticulum is noted. 2. There is moderate bilateral hydroureteronephrosis, likely related to bladder distention. 3. No shadowing renal calculi are identified. ACT 112: Negative or not required by law. Electronically signed by: Rajendra Trent M.D. 03/06/2023 10:15 PM
[2023-03-06] MEDS ORDERED: TAMSULOSIN HCL 0.4 MG CAP PO ONE (22:51)
[2023-03-06] MEDS ORDERED: TAMSULOSIN HCL 0.4 MG CAP ONE (23:06)
[2023-03-06] MEDS: SODIUM CHLORIDE 0.9% 1,000 ML IV SCH ×3 (23:23→23:50)
[2023-03-06] MEDS ORDERED: cloNIDine HCL 0.1 MG TAB PO ONE (23:24)
--- NOTE | 2023-03-06 23:29 | Urology Consultation ---
Date of Consultation March 06, 2023 Assessment & Plan (1) Urinary retention: The patient is being admitted on the hospitalist service. From a urologic perspective we recommend proceeding as follows: Patient does appear to have acute kidney injury. I suspect that this is due to bladder distention/incomplete bladder emptying resulting in hydronephrosis and his acute kidney injury. Nephrotoxins should be avoided It does not appear the patient has any infectious etiology as his urinalysis is not indicative of infection Serial labs to be followed Would recommend maintaining Diaz catheter in place for the present time. Would recommend maintaining the patient on intravenous fluids as he has had a significant urine output Consideration should be given to initiating Flomax I suspect the patient may have to be discharged home with Diaz catheter in place. An outpatient voiding trial can be attempted at time of follow-up. If patient fails voiding trial discussion can be had with the patient about potential surgical options such as possible TURP Additional recommendations be forthcoming based on his clinical course as it unfolds (2) MARY (acute kidney injury): History of Present Illness Reason for Consultation: Urinary retention History of Present Illness This is a 67-year-old male who presents to the emergency department secondary to approximately 5 days of nausea and vomiting. Patient says that he does not have any abdominal pain. He has not had any fevers, shakes, or chills. He has not been in close contact with anyone with similar symptoms. The patient felt as though he was getting dehydrated so he presented to the emergency department. Urology has been asked to see the patient due to urinary retention with findings on renal ultrasound and labs as noted below. From a urologic perspective I did asked the patient about voiding habits. He notes for approximately 2 years he has had some intermittent symptoms of decreased urinary stream, urinary frequency, and incomplete bladder emptying. The patient says that he did take an over the counter supplement which would intermittently help his symptoms. He notes that he has never seen a urologist for such problems. He specifically denies any back or flank pain. He denies any dysuria or hematuria. Since arrival to hospital patient has had labs and imaging which independent reviewed. The patient did have a renal ultrasound which showed the patient had marked bladder distention with a bladder diverticulum. Patient is noted to have moderate bilateral hydronephrosis which was felt to be related to the patient's underlying bladder distention. No kidney stones were identified on the study. Labs include a CBC her white blood cell count and platelet count were normal. His hemoglobin and hematocrit were 12.7 and 35.4. Chemistry profile showed sodium and potassium were normal. His BUN was normal but he did have an elevated creatinine at 2.3. Review of records show that this level was above his baseline which was usually anywhere from 0.4-2.9. There is no elevation of patient's LFTs or lipase. Urinalysis was not indicative of infection and a COVID test was negative. Since arrival to the emergency department the patient has had a Diaz catheter placed. I discussed with the nurse attending the patient and the patient did have an immediate drainage of approximately 1 L of urine. The urine is clear without blood or clots. At the time of my interview the patient was resting comfortably in bed and he was in no distress. Allergies Allergy/AdvReac Type Severity Reaction Status Date / Time pollen extracts Allergy Intermediate Sneezing Verified 03/06/23 21:36 tree and shrub pollen Allergy Intermediate Sneezing Verified 03/06/23 21:36 weed pollen Allergy Intermediate Sneezing Verified 03/06/23 21:36 Home Medications Medication Instructions Recorded Confirmed Type acetaminophen 325 mg tablet 650 mg PO Q4H PRN Pain 03/06/23 03/06/23 History cholecalciferol (vitamin D3) 25 0 mcg PO DAILY 03/06/23 03/06/23 History mcg (1,000 unit) chewable tablet (Vitamin D3) loratadine 10 mg tablet (Claritin) 10 mg PO DAILY 03/06/23 03/06/23 History Patient History Medical History Anemia Hx of appendicitis No pertinent past medical history Surgical History History of appendectomy Family History Mother Sepsis Father Coronary heart disease Social History Smoking Status: Never smoker Second Hand Exposure: Yes (father); Do You Dip or Chew Tobacco: No; Hx Alcohol Use: No Hx Substance Use: No Preferred Language: Czech Communication Ability: Effective Coating Mixer Required: No Beliefs That Will Affect Care: None Current Living Situation: Family Current Living Situation Comment: 2 sons Feels Safe at Home: Yes Assistive Devices: None Review of Systems Constitutional: no fever and no chills Ear, Nose, Mouth, Throat: no hearing loss Respiratory: no cough Cardiovascular: no chest pain Gastrointestinal: + nausea and + vomiting; no abdominal pain Genitourinary: + as per Subjective / HPI Musculoskeletal: no back pain Integumentary: no rash Neurologic: no localized weakness Physical Exam Constitutional: WD/WN, vitals as above Eyes: no conjunctival abnormality ENMT: Ears: no hearing impairment and no external ear abnormality Mouth: no oropharynx abnormality Neck: trachea midline Respiratory: normal respiratory effort; no respiratory distress and no labored breathing Cardiovascular: Rate/Rhythm: regular rate and regular rhythm Gastrointestinal (Abdomen): Abdomen is soft, nonrigid, nondistended, nontender to palpation. There is no rebound tenderness or guarding. Musculoskeletal: No calf tenderness or lower extremity edema Skin: no rashes Neurologic: moves all extremities Psychiatric: A+Ox3, euthymic affect Genitourinary: At the time of my exam the patient did not have any CVA tenderness with percussion bilaterally. Diaz catheter was in place that was draining clear yellow urine. Results & Data Vital Signs (Past 12 Hours) Vital Signs Temp Pulse Pulse Resp BP BP Pulse Ox 03/06/23 22:22 97 H 03/06/23 21:07 103 H 18 188/105 H 100 03/06/23 18:53 36.7 C 92 H 18 156/101 H 100 O2 Del Method 03/06/23 22:22 03/06/23 21:07 Room Air 03/06/23 18:53 Room Air PG Care Time/CCT Total # of Minutes Spent Total Time Spent with Patient: Total time spent is greater than 50% in coordination of care (as documented) at patient's floor/unit and/or counseling patient: Coding Level of Care Code 51890 INT INP/OBS CARE 3/75MIN Diagnoses Urinary retention R33.9 MARY (acute kidney injury) N17.9
--- NOTE | 2023-03-06 23:41 | History & Physical Report ---
Date of Service March 06, 2023 Assessment & Plan (1) Urinary retention: Plan: 67-year-old male with no significant past medical history presents with weakness and cold-like symptoms and nausea and found to MARY and urinary retention. Urinary retention Possibly BPH Patient is he was on prostate medication in the past but stopped it Started on Flomax S/p Diaz and drained about 800 mill Appreciate urology inputs MARY Creatinine 2.34 Creatinine was around 0.5 in 2020 Renal ultrasound shows bilateral moderate hydronephrosis likely related to bladder distention Most likely obstructive uropathy S/p Diaz and will follow labs in a.m. Upper respiratory infection with nausea COVID-negative We will follow respiratory bio fire Hypertension patient states his blood pressure usually runs okay Currently will place on clonidine as needed Will monitor We will also follow echo for any LVH Lower extreme edema We will follow echocardiogram DVT prophylaxis heparin subcu Disposition med/telemetry Full code (2) MARY (acute kidney injury): History of Present Illness Chief Complaint: Weakness Primary Care Provider: NO PCP 67-year-old male with no significant past medical history as per patient comes to the ER because for last 2 days he has some runny nose sinus symptoms and nausea and felt getting dehydrated and in the ER the labs showed MARY. Also states since last 1 month he is having trouble micturating. He is micturating in small amounts. And sometimes in the night he pees a lot. He says he has prostate problems and he was on medication for 1 and half year in the past but stopped it as he was doing okay. Denies any fevers. Currently after fluids he is feeling better and his nausea has improved. He says he wanted to go home and come back tomorrow but finally agreed to stay but seems like to go home tomorrow. Denies any headache. No blurred visions or earache or runny nose or sore throat currently. No cough. No chest pain or shortness of breath. No nausea. No abdominal pain. Normal bowel movements. Denies any blood in the stools or hematuria. Blood pressures running high, patient states his blood pressure usually fine but is currently high because he is sick. States he is very active Past medical history possible BPH Past surgical history denies any surgeries Social history. Denies smoking. States quit alcohol 4 years ago. Family history says his father might of had prostate problems Allergies Allergy/AdvReac Type Severity Reaction Status Date / Time pollen extracts Allergy Intermediate Sneezing Verified 03/06/23 21:36 tree and shrub pollen Allergy Intermediate Sneezing Verified 03/06/23 21:36 weed pollen Allergy Intermediate Sneezing Verified 03/06/23 21:36 Home Medications Medication Instructions Recorded Confirmed Type acetaminophen 325 mg tablet 650 mg PO Q4H PRN Pain 03/06/23 03/06/23 History cholecalciferol (vitamin D3) 25 0 mcg PO DAILY 03/06/23 03/06/23 History mcg (1,000 unit) chewable tablet (Vitamin D3) loratadine 10 mg tablet (Claritin) 10 mg PO DAILY 03/06/23 03/06/23 History Past Med/Surg History Medical History Anemia Hx of appendicitis No pertinent past medical history Surgical History History of appendectomy Family History Mother Sepsis Father Coronary heart disease Social History Smoking Status: Never smoker Second Hand Exposure: Yes (father); Do You Dip or Chew Tobacco: No; Hx Alcohol Use: No Hx Substance Use: No Preferred Language: Setswana Communication Ability: Effective Public Information Specialist Required: No Beliefs That Will Affect Care: None Current Living Situation: Family Current Living Situation Comment: son lives with pt Feels Safe at Home: Yes Assistive Devices: None Review of Systems Review of Systems: All systems reviewed & are unremarkable except as noted in HPI & below Physical Exam Physical Exam: General- Not in distress Head- atraumatic Eyes- PERRL. ENT- oropharynx clear Neck- supple, no JVD, Lungs- clear to auscultation, no wheezing or crackles. Heart- regular rate and rhythm; no murmur, no gallop. Abdomen- normal bowel sounds, soft, nontender, no distension. Extremities- lower extremity edema present., no erythema seen. Neuro- alert, oriented x 3; PERRL, EOMI; no facial palsy; no dysarthria; non focal. Results & Data Results & Data Vital Signs (Past 12 Hours) Vital Signs Temp Pulse Pulse Resp BP BP Pulse Ox 03/06/23 23:34 92 H 15 198/116 H 99 03/06/23 23:34 03/06/23 22:22 97 H 03/06/23 21:07 103 H 18 188/105 H 100 03/06/23 18:53 36.7 C 92 H 18 156/101 H 100 O2 Del Method 03/06/23 23:34 03/06/23 23:34 Room Air 03/06/23 22:22 03/06/23 21:07 Room Air 03/06/23 18:53 Room Air Diagnostic Findings Laboratory Results WBC 5.93 K/ul (4.8-10.8) 03/06/23 19:20 RBC 4.14 M/uL (4.70-6.10) L 03/06/23 19:20 Hgb 12.7 g/dl (14.0-18.0) L 03/06/23 19:20 Hct 35.4 % (42.0-52.0) L 03/06/23 19:20 MCV 85.5 fL (80.0-100.0) 03/06/23 19:20 MCH 30.7 pg (25.0-34.0) 03/06/23 19:20 MCHC 35.9 g/dL (32.0-36.0) 03/06/23 19:20 RDW Std Deviation 43.0 fL (36.4-46.3) 03/06/23 19:20 RDW Coeff of Jaci 13.8 % (11.5-14.5) 03/06/23 19:20 Plt Count 199 K/uL (130-400) 03/06/23 19:20 MPV 12.0 fL (9.4-12.4) 03/06/23 19:20 Immature Gran % (Auto) 0.2 % 03/06/23 19:20 Neut % (Auto) 70.6 % 03/06/23 19:20 Lymph % (Auto) 14.5 % 03/06/23 19:20 [place] % (Auto) 10.6 % 03/06/23 19:20 Eos % (Auto) 2.9 % 03/06/23 19:20 Baso % (Auto) 1.2 % 03/06/23 19:20 Neut # (Auto) 4.19 K/uL (1.40-6.50) 03/06/23 19:20 Lymph # (Auto) 0.86 K/uL (1.20-3.40) L 03/06/23 19:20 [place] # (Auto) 0.63 K/uL (0.11-0.59) H 03/06/23 19:20 Eos # (Auto) 0.17 K/uL (0.00-0.50) 03/06/23 19:20 Baso # (Auto) 0.07 K/uL (0.00-0.20) 03/06/23 19:20 Immature Gran # (Auto) 0.01 K/uL (0.01-0.20) 03/06/23 19:20 Sodium 137 mmol/L (136-145) 03/06/23 19:20 Potassium 4.2 mmol/L (3.5-5.1) 03/06/23 19:20 Chloride 100 mmol/L (98-107) 03/06/23 19:20 Carbon Dioxide 27 mmol/L (21-32) 03/06/23 19:20 Anion Gap 10 (3-11) 03/06/23 19:20 BUN 17 mg/dl (6-23) 03/06/23 19:20 Creatinine 2.34 mg/dl (0.6-1.4) H 03/06/23 19:20 Est Cr Clr Drug Dosing 33.6 ml/min 03/06/23 19:20 Est GFR ( Amer) 32.2 ml/min 03/06/23 19:20 Est GFR (Non-Af Amer) 27.7 ml/min 03/06/23 19:20 BUN/Creatinine Ratio 7.3 (10-20) L 03/06/23 19:20 Glucose 92 mg/dl (70-99(Fasting)) 03/06/23 19:20 Calcium 9.8 mg/dl (8.6-10.3) 03/06/23 19:20 Total Bilirubin 0.9 mg/dl (0.2-1.0) 03/06/23 19:20 AST 19 U/L (13-39) 03/06/23 19:20 ALT 14 U/L (7-52) 03/06/23 19:20 Alkaline Phosphatase 56 U/L (34-104) 03/06/23 19:20 Total Protein 6.6 gm/dl (6.0-8.3) 03/06/23 19:20 Albumin 4.4 gm/dl (3.4-5.0) 03/06/23 19:20 Globulin 2.2 gm/dl (2.5-4.0) L 03/06/23 19:20 Albumin/Globulin Ratio 2.0 (0.9-2) 03/06/23 19:20 Lipase 7 U/L (11-82) L 03/06/23 19:20 Urine Color Yellow 03/06/23 19:45 Urine Appearance Clear (Clear) 03/06/23 19:45 Urine pH >= 9.0 (4.5-7.5) H 03/06/23 19:45 Ur Specific [place] 1.006 (1.000-1.030) 03/06/23 19:45 Urine Protein Negative (Negative) 03/06/23 19:45 Urine Glucose (UA) Negative (Negative) 03/06/23 19:45 Urine Ketones Negative (Negative) 03/06/23 19:45 Urine Blood Negative (Negative) 03/06/23 19:45 Urine Nitrite Negative (Negative) 03/06/23 19:45 Urine Bilirubin Negative (Negative) 03/06/23 19:45 Urine Urobilinogen Negative (Negative) 03/06/23 19:45 Ur Leukocyte Esterase Negative (Negative) 03/06/23 19:45 SARS-CoV-2, RNA, NAAT NEGATIVE (NEGATIVE) 03/06/23 21:28 Impressions Renal Ultrasound 03/06/23 21:19 ULTRASOUND KIDNEYS AND BLADDER CLINICAL HISTORY: Acute renal insufficiency. COMPARISON STUDY: Abdominal CT dated 09/24/2009 TECHNIQUE: Real-time, grayscale, and color flow sonography of the kidneys and bladder is performed. Images are reviewed in the transverse and longitudinal planes. FINDINGS: Kidneys: The kidneys are normal in size and echotexture. The right kidney measures 12.7 cm in length and the left kidney measures 13.7 cm in length. There is moderate bilateral hydroureteronephrosis. No shadowing renal calculi are identified. There is no sonographic evidence of contour deforming renal mass lesion. A 2.5 cm cyst is seen in the right lower pole. No perinephric fluid is identified. Bladder: The bladder is markedly distended. The wall appears thickened/trabeculated. Ureteral jets were not seen. A bladder diverticulum is noted. The postvoid residual measures 966 cc. IMPRESSION: 1. Marked bladder distention. A bladder diverticulum is noted. 2. There is moderate bilateral hydroureteronephrosis, likely related to bladder distention. 3. No shadowing renal calculi are identified. ACT 112: Negative or not required by law. Electronically signed by: Rajendra Trent M.D. 03/06/2023 10:15 PM ECG Additional Comments: ECG sinus rhythm with frequent PVCs at a rate of 88. No acute ST changes seen Code Status & VTE Plan VTE Prophylaxis Plan VTE Prophylaxis will be ordered: Yes
[2023-03-07] MEDS ORDERED: POLYETHYLENE (MIRALAX) 17 GM PACK PO PRN (01:02)
[2023-03-07] MEDS ORDERED: cloNIDine HCL 0.1 MG TAB PO PRN (01:02)
[2023-03-07] MEDS ORDERED: NITROGLYCERIN SL 0.4 MG/TAB TAB SL PRN (01:02)
[2023-03-07 01:27] LABS: Adenovirus PCR Not Detected (NotDetected); Bordetella parapertussis PCR Not Detected (NotDetected); Bordetella pertussis PCR Not Detected (NotDetected); Chlamydia pneumoniae PCR Not Detected (NotDetected); Coronavirus 229E PCR Not Detected (NotDetected); Coronavirus CoV-2 (COVID19)PCR Not Detected (NotDetected); Coronavirus HKU1 PCR Not Detected (NotDetected); Coronavirus NL63 PCR Not Detected (NotDetected); Coronavirus OC43PCR Not Detected (NotDetected); Human Metapneumovirus PCR Not Detected (NotDetected); Influenza A PCR Not Detected (NotDetected); Influenza B PCR Not Detected (NotDetected); Mycoplasma pneumoniae PCR Not Detected (NotDetected); Parainfluenza Virus 1 PCR Not Detected (NotDetected); Parainfluenza Virus 2 PCR Not Detected (NotDetected); Parainfluenza Virus 3 PCR Not Detected (NotDetected); Parainfluenza Virus 4 PCR Not Detected (NotDetected); Respiratory Syncytial VirusPCR Not Detected (NotDetected); Rhinovirus/Enterovirus PCR Not Detected (NotDetected)
[2023-03-07 05:18] LABS: Basophils # (auto) 0.07 K/uL (0.00-0.20); Basophils % (auto) 1.3 %; Eosinophils # (auto) 0.17 K/uL (0.00-0.50); Eosinophils % (auto) 3.2 %; Hematocrit (blood only) 35.7 % (42.0-52.0); Immature Granulocytes # (auto) 0.02 K/uL (0.01-0.20); Immature Granulocytes % (auto) 0.4 %; Lymphocytes # (auto) 0.76 K/uL (1.20-3.40); Lymphocytes % (auto) 14.3 %; Mean Corpuscular Hemoglobin 29.7 pg (25.0-34.0); Mean Corpuscular Hgb Conc 33.6 g/dL (32.0-36.0); Mean Corpuscular Volume 88.4 fL (80.0-100.0); Mean Platelet Volume 11.8 fL (9.4-12.4); Monocytes # (auto) 0.54 K/uL (0.11-0.59); Monocytes % (auto) 10.2 %; Neutrophils # (auto) 3.74 K/uL (1.40-6.50); Neutrophils % (auto) 70.6 %; Platelet Count 178 K/uL (130-400); RDW Coefficient of Variation 13.8 % (11.5-14.5); RDW Standard Deviation 45.1 fL (36.4-46.3); Red Blood Count 4.04 M/uL (4.70-6.10)
[2023-03-07 05:23] LABS: BUN Creatinine Ratio 7.4 (10-20); Calcium 9.1 mg/dl (8.6-10.3); Creatinine Clr Calc Pharmacy 36.3 ml/min; Est GFR (African American) 35.2 ml/min; Est GFR (Non-African American) 30.4 ml/min; Magnesium 1.7 mg/dl (1.7-2.4); Potassium 4.2 mmol/L (3.5-5.1)
[2023-03-07] MEDS: HEPARIN SOD 5,000 UNIT/0.5 ML VIAL SQ SCH ×2 (09:14→20:56)
[2023-03-07] MEDS ORDERED: amLODIPine BESYLATE 5 MG TAB PO ONE (10:30)
--- NOTE | 2023-03-07 12:00 | Hospitalist Progress Note ---
Date of Service March 07, 2023 Assessment & Plan (1) Urinary retention: Plan: 67-year-old male with no significant past medical history presents with weakness and cold-like symptoms and nausea and found to MARY and urinary retention. Acute kidney injury Urinary retention Obstructive uropathy Renal USS noted marked bladder distention and moderate bilateral hydroureteronephrosis Cr was 2.34 on admission. Cr was 0.5 in 2020 Currently 2.17 today Reported he was taking a 'prostate herbal medication' which he got from his friend but has stopped it some months ago Continue florentino placement. Urology recs noted. Plan to discharge with florentino once stable to follow up with Urology outpatient Increase IVF to 125cc/h. Monitor Cr and urine output Continue flomax Upper respiratory symptoms may be related to allergy Continue supportive care Loratadine po Hypertension Denies any home medications Started amlodipine TTE noted EF 60-65%, mild conc LVH, mod AV sclerosis, grade I DD DVT prophylaxis heparin subcu Full code I spent a total of 50 minutes coordinating, documenting and providing care for this patient excluding time spent in performance of separately billed services (2) MARY (acute kidney injury): Admission and Anticipated Discharge Date Admission Date: March 06, 2023 Subjective Patient seen and examined Reports feeling better today Stated he has been having urinary problems for months. Usually weak stream and dribbling. 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 Currently denied fever, nausea, vomiting, abd pain, diarrhea, constipation, melena, hematochezia, hematuria Physical Exam Constitutional: + well hydrated; no acute distress Eyes: PERRL, conjunctivae normal, anicteric sclerae ENMT: external ear and nose normal, oropharynx normal Respiratory: normal respiratory effort, lungs clear to auscultation Cardiovascular: Rate/Rhythm: regular rate and regular rhythm S1 S2 Gastrointestinal (Abdomen): normal bowel sounds, soft, nontender, no hepatos plenomegaly Musculoskeletal: no cyanosis or clubbing, extremities motor strength 5/5 No pedal edema Neurologic: PERRL, EOMI, accommodation nl, no face palsy, no dysarthria Psychiatric: A+Ox3, euthymic affect Genitourinary: Florentino in situ Results & Data Results & Data Vital Signs (Past 12 Hours) Vital Signs Temp Pulse Pulse Resp BP BP Pulse Ox 03/07/23 11:11 36.6 C 76 18 167/89 H 96 03/07/23 09:34 36.5 C 86 16 160/90 H 96 03/07/23 09:08 76 18 160/92 H 97 03/07/23 07:03 83 03/07/23 06:27 74 14 150/83 H 98 03/07/23 04:38 82 18 165/93 H 99 03/07/23 02:00 83 03/07/23 01:23 03/07/23 01:15 84 17 169/111 H 99 Pulse Ox O2 Del Method 03/07/23 11:11 Room Air 03/07/23 09:34 Room Air 03/07/23 09:08 Room Air 03/07/23 07:03 03/07/23 06:27 Room Air 03/07/23 04:38 Room Air 03/07/23 02:00 03/07/23 01:23 99 03/07/23 01:15 Room Air Laboratory Results Abnormal lab results 03/06/23 03/06/23 03/06/23 Range/Units 19:20 19:20 19:45 RBC 4.14 L (4.70-6.10) M/uL Hgb 12.7 L (14.0-18.0) g/dl Hct 35.4 L (42.0-52.0) % Lymph # (Auto) 0.86 L (1.20-3.40) K/uL [place] # (Auto) 0.63 H (0.11-0.59) K/uL Creatinine 2.34 H (0.6-1.4) mg/dl BUN/Creatinine Ratio 7.3 L (10-20) Globulin 2.2 L (2.5-4.0) gm/dl Lipase 7 L (11-82) U/L Urine pH >= 9.0 H (4.5-7.5) 03/07/23 03/07/23 Range/Units 04:41 04:41 RBC 4.04 L (4.70-6.10) M/uL Hgb 12.0 L (14.0-18.0) g/dl Hct 35.7 L (42.0-52.0) % Lymph # (Auto) 0.76 L (1.20-3.40) K/uL [place] # (Auto) (0.11-0.59) K/uL Creatinine 2.17 H (0.6-1.4) mg/dl BUN/Creatinine Ratio 7.4 L (10-20) Globulin (2.5-4.0) gm/dl Lipase (11-82) U/L Urine pH (4.5-7.5)
[2023-03-07] MEDS: ACETAMINOPHEN 325 MG TAB PO PRN (18:59)
[2023-03-07] MEDS: SODIUM CHLORIDE 0.9% 1,000 ML IV SCH ×2 (20:56→21:33)
[2023-03-07] MEDS: TAMSULOSIN HCL 0.4 MG CAP PO SCH (20:57)
[2023-03-07] MEDS ORDERED: cloNIDine HCL 0.1 MG TAB PO ONE (21:31)
[2023-03-08] MEDS: SODIUM CHLORIDE 0.9% 1,000 ML IV SCH ×4 (02:44→23:50)
[2023-03-08 06:45] LABS: Hemoglobin 11.7 g/dl (14.0-18.0); Mean Corpuscular Hemoglobin 30.4 pg (25.0-34.0); Mean Corpuscular Hgb Conc 34.4 g/dL (32.0-36.0); Mean Corpuscular Volume 88.3 fL (80.0-100.0); Mean Platelet Volume 11.7 fL (9.4-12.4); Platelet Count 165 K/uL (130-400); RDW Coefficient of Variation 13.8 % (11.5-14.5); RDW Standard Deviation 44.9 fL (36.4-46.3); Red Blood Count 3.85 M/uL (4.70-6.10); White Blood Count 5.21 K/ul (4.8-10.8)
[2023-03-08 07:14] LABS: BUN Creatinine Ratio 9.2 (10-20); Calcium 8.5 mg/dl (8.6-10.3); Creatinine Clr Calc Pharmacy 42.5 ml/min; Est GFR (African American) 42.7 ml/min; Est GFR (Non-African American) 36.9 ml/min; Potassium 4.1 mmol/L (3.5-5.1)
[2023-03-08] MEDS: LORATADINE 10 MG TAB PO SCH (08:53)
[2023-03-08] MEDS: amLODIPine BESYLATE 5 MG TAB PO SCH (08:54)
[2023-03-08] MEDS: HEPARIN SOD 5,000 UNIT/0.5 ML VIAL SQ SCH ×2 (08:54→20:21)
--- NOTE | 2023-03-08 10:36 | Hospitalist Progress Note ---
Date of Service March 08, 2023 Assessment & Plan (1) Urinary retention: Plan: 67-year-old male with no significant past medical history presents with weakness and cold-like symptoms and nausea and found to MARY and urinary retention. Acute kidney injury Urinary retention Obstructive uropathy Renal USS noted marked bladder distention and moderate bilateral hydroureteronephrosis Cr was 2.34 on admission. Cr was 0.5 in 2020 Currently 1.85 today Monitor Cr and urine output Reported he was taking a 'prostate herbal medication' which he got from his friend but has stopped it some months ago Continue florentino placement. Urology recs noted. Plan to discharge with florentino once stable to follow up with Urology outpatient Increase IVF to compensate for some of the post obstructive diuresis Continue flomax Upper respiratory symptoms may be related to allergy Continue supportive care Loratadine po Hypertension Denies any home medications Started amlodipine TTE noted EF 60-65%, mild conc LVH, mod AV sclerosis, grade I DD DVT prophylaxis heparin subcu Full code I spent a total of 45 minutes coordinating, documenting and providing care for this patient excluding time spent in performance of separately billed services (2) MARY (acute kidney injury): Admission and Anticipated Discharge Date Admission Date: March 06, 2023 Subjective Reports feeling better today Reports sinus congestion. Denied cough, chest pain, SOB Denied abd pain, flank pain. Reported some nausea earlier but resolved Denied any other complaints on ROS Physical Exam Constitutional: + well hydrated; no acute distress Eyes: PERRL, conjunctivae normal, anicteric sclerae ENMT: external ear and nose normal, oropharynx normal Respiratory: normal respiratory effort, lungs clear to auscultation Cardiovascular: Rate/Rhythm: regular rate and regular rhythm S1 S2 Gastrointestinal (Abdomen): normal bowel sounds, soft, nontender, no hepatosplenomegaly Musculoskeletal: no cyanosis or clubbing, extremities motor strength 5/5 Neurologic: PERRL, EOMI, accommodation nl, no face palsy, no dysarthria Psychiatric: A+Ox3, euthymic affect Genitourinary: Florentino in situ Results & Data Results & Data Vital Signs (Past 12 Hours) Vital Signs Temp Pulse Pulse Resp BP Pulse Ox Pulse Ox 03/08/23 07:46 36.4 C L 72 16 134/74 97 03/08/23 06:00 74 03/08/23 02:45 36.5 C 84 18 145/89 H 93 03/08/23 01:02 97 03/07/23 23:52 74 O2 Del Method O2 Del Method O2 Flow Rate 03/08/23 07:46 Room Air 03/08/23 06:00 03/08/23 02:45 Room Air 03/08/23 01:02 Nasal Cannula 2 03/07/23 23:52 Laboratory Results Abnormal lab results 03/08/23 03/08/23 Range/Units 06:17 06:17 RBC 3.85 L (4.70-6.10) M/uL Hgb 11.7 L (14.0-18.0) g/dl Hct 34.0 L (42.0-52.0) % Creatinine 1.85 H D (0.6-1.4) mg/dl BUN/Creatinine Ratio 9.2 L (10-20) Calcium 8.5 L (8.6-10.3) mg/dl
[2023-03-08] MEDS: ACETAMINOPHEN 325 MG TAB PO PRN (12:17)
[2023-03-08] MEDS: TAMSULOSIN HCL 0.4 MG CAP PO SCH (20:21)
--- NOTE | 2023-03-08 21:20 | Electrocardiogram Report ---
Test Reason : Blood Pressure : / mmHG Vent. Rate : 088 BPM Atrial Rate : 088 BPM P-R Int : 138 ms QRS Dur : 092 ms QT Int : 380 ms P-R-T Axes : 069 029 054 degrees QTc Int : 459 ms Sinus rhythm with frequent Premature ventricular complexes Otherwise normal ECG When compared with ECG of 24-FEB-2021 13:13, Premature ventricular complexes are now Present Confirmed by Ze Yin ([id number]) on 03/08/2023 9:20:08 PM Referred By: REFERRED SELF Confirmed By:Ze Yin
[2023-03-09] MEDS: SODIUM CHLORIDE 0.9% 1,000 ML IV SCH (06:46)
[2023-03-09 07:46] LABS: Hematocrit (blood only) 33.1 % (42.0-52.0); Hemoglobin 11.3 g/dl (14.0-18.0); Mean Corpuscular Hgb Conc 34.1 g/dL (32.0-36.0); Mean Corpuscular Volume 87.8 fL (80.0-100.0); Mean Platelet Volume 11.6 fL (9.4-12.4); Platelet Count 166 K/uL (130-400); RDW Coefficient of Variation 13.7 % (11.5-14.5); RDW Standard Deviation 44.4 fL (36.4-46.3); Red Blood Count 3.77 M/uL (4.70-6.10); White Blood Count 4.69 K/ul (4.8-10.8)
[2023-03-09 07:58] LABS: BUN Creatinine Ratio 10.3 (10-20); Calcium 8.2 mg/dl (8.6-10.3); Creatinine Clr Calc Pharmacy 47.7 ml/min; Est GFR (African American) 49.1 ml/min; Est GFR (Non-African American) 42.3 ml/min; Magnesium 1.3 mg/dl (1.7-2.4); Phosphorus 2.5 mg/dl (2.5-4.9); Potassium 4.1 mmol/L (3.5-5.1)
[2023-03-09] MEDS: amLODIPine BESYLATE 5 MG TAB PO SCH (09:19)
[2023-03-09] MEDS: LORATADINE 10 MG TAB PO SCH (09:19)
[2023-03-09] MEDS: HEPARIN SOD 5,000 UNIT/0.5 ML VIAL SQ SCH (09:19)
[2023-03-09] MEDS: MAGNESIUM SULFATE / D5W 1 GM/100 ML BAG IV SCH ×2 (09:21→11:04)
--- NOTE | 2023-03-09 11:06 | Discharge Summary ---
Date of Service March 09, 2023 Admission HPI Per Admitting Provider 67-year-old male with no significant past medical history as per patient comes to the ER because for last 2 days he has some runny nose sinus symptoms and nausea and felt getting dehydrated and in the ER the labs showed MARY. Also states since last 1 month he is having trouble micturating. He is micturating in small amounts. And sometimes in the night he pees a lot. He says he has prostate problems and he was on medication for 1 and half year in the past but stopped it as he was doing okay. Denies any fevers. Currently after fluids he is feeling better and his nausea has improved. He says he wanted to go home and come back tomorrow but finally agreed to stay but seems like to go home tomorrow. Denies any headache. No blurred visions or earache or runny nose or sore throat currently. No cough. No chest pain or shortness of breath. No nausea. No abdominal pain. Normal bowel movements. Denies any blood in the stools or hematuria. Blood pressures running high, patient states his blood p ressure usually fine but is currently high because he is sick. States he is very active Past medical history possible BPH Past surgical history denies any surgeries Social history. Denies smoking. States quit alcohol 4 years ago. Family history says his father might of had prostate problems Admission Exam Per Admitting Provider General- Not in distress Head- atraumatic Eyes- PERRL. ENT- oropharynx clear Neck- supple, no JVD, Lungs- clear to auscultation, no wheezing or crackles. Heart- regular rate and rhythm; no murmur, no gallop. Abdomen- normal bowel sounds, soft, nontender, no distension. Extremities- lower extremity edema present., no erythema seen. Neuro- alert, oriented x 3; PERRL, EOMI; no facial palsy; no dysarthria; non focal. Principal Diagnosis Acute kidney injury Obstructive uropathy Hypertension Discharge Exam Constitutional + well hydrated; no acute distress Eyes PERRL, conjunctivae normal, anicteric sclerae ENMT external ear and nose normal, oropharynx normal Respiratory normal respiratory effort, lungs clear to auscultation Cardiovascular Rate/Rhythm: regular rate and regular rhythm S1 S2 Gastrointestinal (Abdomen) normal bowel sounds, soft, nontender, no hepatosplenomegaly Musculoskeletal no cyanosis or clubbing, extremities motor strength 5/5 Neurologic PERRL, EOMI, accommodation nl, no face palsy, no dysarthria Psychiatric A+Ox3, euthymic affect Genitourinary Florentino in situ Discharge Data Allergies Allergy/AdvReac Type Severity Reaction Status Date / Time pollen extracts Allergy Intermediate Sneezing Verified 03/06/23 21:36 tree and shrub pollen Allergy Intermediate Sneezing Verified 03/06/23 21:36 weed pollen Allergy Intermediate Sneezing Verified 03/06/23 21:36 Consultations 03/06/23 22:14 ED Decision to Admit Stat 03/07/23 08:00 Consult Urology Routine Ordered Studies 03/06/23 21:19 US renal/blad retro comp Stat Hospital Course (1) Urinary retention: 67-year-old male with no significant past medical history presents with weakness and cold-like symptoms and nausea and found to MARY and urinary retention. Acute kidney injury Urinary retention Obstructive uropathy Renal USS noted marked bladder distention and moderate bilateral hydroureteronephrosis Cr was 2.34 on admission. Cr was 0.5 in 2020 MARY improving Cr is down to 1.65 today Hypomagnesemia 1.3 today. Repleted prior to discharge PCP to check BMP, Mag and Phos on follow up Reported he was taking a 'prostate herbal medication' which he got from his friend but has stopped it some months ago Was evaluated by Urology inpatient Discharge with Florentino catheter To follow up with Urology outpatient Started on Flomax Upper respiratory symptoms may be related to allergy Loratadine po for a few more days Hypertension Denies any home medications Started on amlodipine 5mg daily TTE noted EF 60-65%, mild conc LVH, mod AV sclerosis, grade I DD (2) MARY (acute kidney injury): Total Time Total Time Spent Total Time Spent (In Minutes): 40 Total Time Includes: Examination of the Patient, Discharge Planning and Medication Reconciliation Discharge Plan Discharge Items Patient Disposition: Home - Self-Care Reason For Visit: WEAKNESS, MARY Discharge Diagnosis: Acute kidney injury Obstructive uropathy Hypertension Activity: Resume your previous activity Non-emergency contact: Primary Care Provider and Urologist Call non-emergency contact if: you have any medication questions Follow-up/Referrals: Jose Ott DO [Physician] - (The Urology office will contact you for a follow up appointment.) Nadiya Maxwell MD [Outside Practitioners] - (Date & Time 03/12/2023 2:00 PM Provider Nadiya Maxwell MD [facility] ) Diet: Heart Healthy and Low Sodium (2gm) Addtl Attending Provider Instructions: Mr Urena You came to the hospital due to weakness and feeling dehydrated. You were evaluated and managed for the above listed diagnoses. You are being discharged on a florentino catheter. Please continue this until follow up with Urology. You were started on tamsulosin for your urinary problems. You were also started on amlodipine for hypertension. Please take loratadine for next few days for your congestion. Please ensure follow up with your Primary Doctor and Urologist. It was a pleasure taking care of you. Pending Studies at Discharge: No Stand-Alone Forms: My [facility], Smoking Cessation Medications and DC Order Prescriptions: New amlodipine [Norvasc] 5 mg Tablet 5 mg PO QAM Qty: 30 0RF tamsulosin 0.4 mg Capsule 0.4 mg PO HS Qty: 30 0RF loratadine [Wal-itin] 10 mg Tablet 10 mg PO QAM Qty: 5 0RF Discharge Orders: Discharge Order (Routine); Ordered 03/09/23 Ordered By: Phylicia Cuba/Other Patient Handouts: Tamsulosin Oral Capsule, Amlodipine Oral Tablet, Urinary Catheter Bag Empty Clean, Florentino Catheter Male Ch Admission Data Admit Date/Time: 03/06/23 22:56 Attending Provider: Phylicia Franks I. Admit Provider: Erick Vernon Primary Care Provider: PCP,NO Other Providers: Erick Vernon ; Charles Ya ; John Whitney ; Daniel Ríos ; Nichole Feldman ; Jose Ott ; Genet Landon ; Itzel Bravo ; Tutu Mcclure ; Mayra Woo ; Leslee Stearns ; Jonathan Elizalde ; Yordy Myers Other Interventions: Discharge Summary Assessment (RN) Last Done: 03/09/23 11:43
== END 2023-03-09 14:34 | disposition home or self-care (01) | DRG 684 ==
LOC: ED 18:43 → EDINP 22:56 → 2N 03-07 01:02